=== PATIENT | female | born 1940 | race Hispanic/Latino ===

== ENCOUNTER → 2018-05-06 | Outpatient (CLI) | payer SELFPAY | END | disposition home or self-care (01) | LOC: OIH 13:49 | PROVIDERS: ATTEND Internal Medicine Cardiovascular Disease | DX: Z13.6 Encounter for screening for cardiovascular disorders (principal); K76.0 Fatty (change of) liver, not elsewhere classified | CPT/HCPCS: 75571 ==

== ENCOUNTER → 2018-05-22 | Outpatient (CLI) | payer MEDICARE | END | disposition home or self-care (01) | LOC: SHCH 13:44 | PROVIDERS: ATTEND Internal Medicine Cardiovascular Disease | DX: I73.9 Peripheral vascular disease, unspecified (principal) | CPT/HCPCS: 93925 ==

== ENCOUNTER 2018-07-08 07:46 | Inpatient (IN) | payer MEDICARE ==
[2018-07-04 10:30] VITALS: BP 128/52
[2018-07-04 11:02] LABS: BASOPHILS % (AUTO) 0.8 % (0.0-5.0); HEMATOCRIT 34.2 % (36-48); LYMPHOCYTES % (AUTO) 11.7 % (21.0-51.0); MEAN CORPUSCULAR HEMOGLOBIN 31.6 pg (27.0-33.0); MEAN CORPUSCULAR VOLUME 95.8 fL (79-99); MONOCYTES % (AUTO) 2.6 % (3.0-13.0); NEUTROPHILS % (AUTO) 83.9 % (40.0-77.0); NUCLEATED RED BLOOD CELLS 0.1 % (0.0-0.19); PLATELET COUNT (AUTO) 126 K/uL (130-400); RED BLOOD CELL COUNT(AUTO) 3.57 MIL/uL (4.00-5.50); RED CELL DISTRIBUTION WIDTH 13.1 % (11.0-15.5); WHITE BLOOD COUNT (AUTO) 13.1 K/uL (4.8-10.8)
[2018-07-04 11:12] LABS: CREATININE 0.8 mg/dL (0.5-1.5); POTASSIUM 4.6 mmol/L (3.5-5.1)
[2018-07-04 11:17] LABS: APPEARANCE,URINE Cloudy (CLEAR); BILIRUBIN,URINE Negative (NEGATIVE); COLOR,URINE Yellow (YELLOW); GLUCOSE, URINE (UA) >=1000 mg/dL (NEGATIVE); KETONES,URINE Trace mg/dL (NEGATIVE); LEUKOCYTE ESTERASE ,URINE Moderate (NEGATIVE); NITRATE,URINE Negative (NEGATIVE); OCCULT BLOOD,URINE Negative (NEGATIVE); PH,URINE 7.5 (5.0-8.0); PROTEIN,URINE Negative (NEGATIVE)
[2018-07-04 11:42] LABS: BACTERIA,URINE Many /HPF (None Seen)
[2018-07-04 11:44] LABS: RBC,URINE 0-1 /HPF (0-1)
[2018-07-04 12:00] LABS: INR 0.97 (0.85-1.15); PARTIAL THROMBOPLASTIN TIME 26.6 SEC (26.3-35.5); PROTHROMBIN TIME 10.2 SEC (9.6-11.6)
--- NOTE | 2018-07-07 13:12 | NUR ---
ABNORMAL LABS REPORTED ABNORMAL LABS TO OLLIE AYALA. WBC 13.1, PLATELETS 126, UA. ORDERS TO REDRAW CBC ON ARRIVAL .
[2018-07-08] VITALS (10 sets, daily range): BP systolic 129–145; BP diastolic 42–99
[~2018-07-08] VITALS: Ht 152.4 cm; Wt 59.9 kg
[~2018-07-08 07:46] MED LIST: ACETAMINOPHEN 325 MG TAB PO PRN; ASPI-555 PO; CARV3.12 PO; DIGO125T87 PO; FURO20TA4 PO; OMEP40CA37 PO; POTA-79 PO; SENN-31 PO; SIMV20TA6 PO; SITA1TAB6 PO; SODIUM CHLORIDE 0.9% 500ML 500 ML IV SCH; [UNRECOGNIZED DRUG - OTHER] PO
[2018-07-08 08:08] LABS: EOSINOPHILS % (AUTO) 1.1 % (0.0-8.0); HEMATOCRIT 34.7 % (36-48); MEAN CORPUSCULAR HEMOGLOBIN 31.8 pg (27.0-33.0); MEAN CORPUSCULAR HGB CONC 33.4 g/dL (32.0-36.0); MEAN CORPUSCULAR VOLUME 95.2 fL (79-99); MONOCYTES % (AUTO) 3.8 % (3.0-13.0); NEUTROPHILS % (AUTO) 80.1 % (40.0-77.0); NUCLEATED RED BLOOD CELLS 0.1 % (0.0-0.19); PLATELET COUNT (AUTO) 129 K/uL (130-400); RED BLOOD CELL COUNT(AUTO) 3.64 MIL/uL (4.00-5.50); WHITE BLOOD COUNT (AUTO) 9.7 K/uL (4.8-10.8)
[2018-07-08] MEDS ORDERED: SODIUM CHLORIDE 0.9% 1000ML 1,000 ML IV ONE ×2 (09:04→22:40)
[2018-07-08] MEDS ORDERED: INSULIN HUMULIN R 100 UNIT/ML 3ML ONE (09:06)
[2018-07-08] MEDS ORDERED: INSU100V12 SQ (09:52)
[2018-07-08] MEDS ORDERED: INSNOV IVP (09:52)
[2018-07-08] MEDS ORDERED: SODIUM BICARB 50MEQ 50ML VIAL ONE (10:51)
[2018-07-08] MEDS ORDERED: IOHEXOL-350 50ML VIAL IV ONE (10:51)
[2018-07-08] MEDS ORDERED: NITROGLYCERIN 5 MG/ML 10 ML VIAL IV ONE (10:51)
[2018-07-08] MEDS ORDERED: HEPARIN SODIUM 1000UNIT/ML 10ML VIAL ONE (10:51)
[2018-07-08] MEDS ORDERED: IOHEXOL 350 MG/ML 100ML INFUS..BTL IV ONE (10:51)
[2018-07-08] MEDS ORDERED: LIDOCAINE HCL 1% 20 ML VIAL ONE (10:51)
[2018-07-08] MEDS ORDERED: MIDAZOLAM HCL 1 MG/ML 2ML VIAL ONE ×2 (11:17→11:38)
[2018-07-08] MEDS ORDERED: MEPERIDINE-PF 25 MG/ML SYG ONE ×2 (11:17→11:38)
[2018-07-08] MEDS ORDERED: SODIUM CHLORIDE 0.9% 1000ML 1,000 ML IV SCH (11:57)
[2018-07-08] MEDS ORDERED: TRAMADOL HCL 50 MG TABLET PO PRN ×2 (17:45)
[2018-07-08] MEDS ORDERED: ACETAMINOPHEN 325 MG TAB PO PRN (17:45)
[2018-07-08] MEDS ORDERED: POTASSIUM CHLORIDE 10% ELIXIR 20 MEQ/15 ML UDCUP PO PRN (18:00)
[2018-07-08] MEDS ORDERED: POTASSIUM CHLORIDE 20MEQ/100ML 100 ML IV PRN ×2 (18:00)
[2018-07-08] MEDS ORDERED: GLUCAGON 1MG KIT 1 MG ML IM PRN (18:00)
[2018-07-08] MEDS ORDERED: LIDOCAINE HCL-MPF 1% 2ML VIAL IVP PRN ×2 (18:00)
[2018-07-08] MEDS ORDERED: DEXTROSE 50%-WATER 50 ML DISP.SYRIN IV PRN (18:00)
[2018-07-08] MEDS ORDERED: POTASSIUM CHLORIDE 20 MEQ ERTAB PO PRN (18:00)
--- NOTE | 2018-07-08 18:00 | NUR ---
POST PROCEDURE RECEIVED PT FROM DAY PATIENT, IN WHEELCHAIR, RT GROIN SOFT NONTENDER WITH NO OOZING OR HEMATOMA PRESENT. DP/PT PULSES PALPABLE, PT IS AMBULATORY FROM WHEELCHAIR TO BED, GAIT SLOW AND UNSTEADY WITH ASSIST. PT DENIES PAIN, SOB, NAUSEA. CALL LIGHT WITHIN REACH, FAMILY AT BEDSIDE.
--- NOTE | 2018-07-08 20:10 | NUR ---
PATIENT PREPPED FOR CABG BY JUDI MCCLAIN. 1ST LORI STARTED.
--- NOTE | 2018-07-08 21:30 | NUR ---
ASSESSMENT PATIENT IS AAOX3. PATIENT DENIES CHEST PAIN AND SHORTNESS OF BREATH. ON ROOM AIR. RESPIRATIONS UNLABORED. SINUS RHYTHM HR 70'S. S/P LT HEART CATH. RT GROIN SOFT WITHOUT BLEEDING OR HEMATOMA. PEDAL PULSES PALPABLE. REMINDED PATIENT NPO AFTER MIDNIGHT, CABG IN A.M. PATIENT VERBALIZED UNDERSTANDING. SEE DOCUMENTATION FOR FULL ASSESSMENT. CALL LIGHT WITHIN REACH. INSTRUCTED PATIENT TO CALL IF ASSISTANCE IS NEEDED.
[2018-07-08 21:36] LABS: HEMATOCRIT 31.8 % (36-48); MEAN CORPUSCULAR HGB CONC 34.2 g/dL (32.0-36.0); MEAN CORPUSCULAR VOLUME 93.8 fL (79-99); NUCLEATED RED BLOOD CELLS 0.1 % (0.0-0.19); PLATELET COUNT (AUTO) 125 K/uL (130-400); RED BLOOD CELL COUNT(AUTO) 3.39 MIL/uL (4.00-5.50); RED CELL DISTRIBUTION WIDTH 13.2 % (11.0-15.5); WHITE BLOOD COUNT (AUTO) 11.5 K/uL (4.8-10.8)
[2018-07-08 21:56] LABS: PARTIAL THROMBOPLASTIN TIME 26.3 SEC (26.3-35.5); PROTHROMBIN TIME 10.5 SEC (9.6-11.6)
[2018-07-08 21:58] LABS: ALBUMIN 3.2 g/dL (3.5-5.0); BILIRUBIN,TOTAL 0.9 mg/dL (0.2-1.0); CREATININE 0.6 mg/dL (0.5-1.5); POTASSIUM 3.9 mmol/L (3.5-5.1); TOTAL PROTEIN, SERUM 6.7 g/dL (6.0-8.3)
[2018-07-08] MEDS: PANTOPRAZOLE SODIUM 40 MG TABLET.DR PO SCH (22:46)
[2018-07-08] MEDS: SIMVASTATIN 20 MG TABLET PO SCH (22:47)
[2018-07-08] MEDS: CARVEDILOL 3.125 MG TABLET PO SCH (22:47)
[2018-07-08] MEDS: INSULIN HUMULIN R 100 UNIT/ML 3ML SQ SCH (23:04)
[2018-07-09] VITALS (11 sets, daily range): BP systolic 88–164; BP diastolic 42–82
--- NOTE | 2018-07-09 05:45 | NUR ---
OBTAINED CONSENT FOR CABG - SIGNED BY PATIENT.
--- NOTE | 2018-07-09 06:05 | NUR ---
2ND HIBICLENS SHOWER STARTED.
[2018-07-09] MEDS: INSULIN HUMULIN R 100 UNIT/ML 3ML SQ SCH ×2 (06:11→11:30)
[2018-07-09] MEDS: CARVEDILOL 3.125 MG TABLET PO SCH (08:47)
[2018-07-09] MEDS: POTASSIUM CHLORIDE 20 MEQ ERTAB PO SCH (08:48)
[2018-07-09] MEDS: SENNOSIDES PO SCH (08:48)
[2018-07-09] MEDS: DOCUSATE SODIUM PO SCH (08:48)
[2018-07-09] MEDS: PANTOPRAZOLE SODIUM 40 MG TABLET.DR PO SCH ×2 (08:49→21:00)
[2018-07-09] MEDS ORDERED: FUROSEMIDE 20 MG TABLET PO SCH (09:00)
[2018-07-09] MEDS ORDERED: DIGOXIN 125 MCG TABLET PO SCH (09:00)
[2018-07-09] MEDS ORDERED: BACITRACIN 50,000 UNIT VIAL ONE (12:11)
[2018-07-09] MEDS ORDERED: PAPAVERINE HCL 30 MG/ML 2ML VIAL ONE (12:11)
[2018-07-09] MEDS ORDERED: OCTYL 2-CYANOACRYLATE 1 EACH TP ONE (12:11)
[2018-07-09] MEDS ORDERED: EPINEPHRINE 1 MG/ML 30ML VIAL IJ ONE (12:21)
[2018-07-09] MEDS ORDERED: NITROGLYCERIN 50 MG/D5% WATER 1 BOT ONE (12:22)
[2018-07-09] MEDS ORDERED: PROTAMINE SULFATE 10 MG/ML 25ML VIAL IV ONE (14:19)
[2018-07-09] MEDS ORDERED: ESMOLOL HCL 10 MG/ML 10 ML VIAL ONE ×2 (14:19→14:21)
[2018-07-09] MEDS ORDERED: LIDOCAINE PF 2% 5ML ABBOJECT ONE (14:20)
[2018-07-09] MEDS ORDERED: FENTANYL CITRATE PF 50 MCG/1 ML 20ML VIAL IJ ONE (14:20)
[2018-07-09] MEDS ORDERED: ROCURONIUM 10MG/1ML SYR 10 MG/ML ML ONE ×2 (14:20→14:29)
[2018-07-09] MEDS ORDERED: EPINEPHRINE 1 MG/ML AMPULE ONE (14:20)
[2018-07-09] MEDS ORDERED: MIDAZOLAM HCL 1 MG/ML 5ML VIAL ONE (14:20)
[2018-07-09] MEDS ORDERED: AMINOCAPROIC ACID 250 MG/ML 20 ML VIAL IV ONE (14:20)
[2018-07-09] MEDS ORDERED: PROPOFOL 10 MG/ML 20ML VIAL IV ONE (14:20)
[2018-07-09] MEDS ORDERED: HEPARIN SODIUM 1000UNIT/ML 10ML VIAL ONE (14:20)
[2018-07-09] MEDS ORDERED: NOREPINEPHRINE BITARTRATE 1 MG/1 ML ML IV ONE (14:20)
[2018-07-09] MEDS ORDERED: VASOPRESSIN 20 UNITS/ML 1ML VIAL ONE (14:21)
[2018-07-09] MEDS ORDERED: AMIODARONE HCL 50 MG/ML 3 ML VIAL ONE (14:21)
[2018-07-09] MEDS ORDERED: GLYCOPYRROLATE 1 MG/5 ML SYRINGE ONE (14:22)
[2018-07-09] MEDS ORDERED: ETOMIDATE 2 MG/ML 10 ML VIAL ONE (14:27)
[2018-07-09] MEDS ORDERED: CEFAZOLIN SODIUM 1 GM VIAL ONE (14:35)
--- NOTE | 2018-07-09 16:09 | NUR ---
PRAVEENA PLAN PATIENT DOWN FOR PROCEDURE. CM WILL CONTINUE FOLLOW. Addendum: 07/09/18 at 1612 by KRISTA KILPATRICK RN CM Amended: Links added.
[2018-07-09 16:22] LABS: ABG BASE EXCESS -4.7 mmol/L (-2.0-3.0); ABG HCO3 22.5 mmol/L (21.0-28.0); ABG OXYGEN SATURATION 98.8 % (95.0-99.0); ABG PCO2 51 mmHg (32-45)
[2018-07-09] MEDS ORDERED: SODIUM CHLORIDE 0.9% 500ML 500 ML IV SCH (16:56)
[2018-07-09] MEDS ORDERED: NOREPINEPHRINE 4MG/NS 250ML 250 ML IV PRN (17:00)
[2018-07-09] MEDS ORDERED: AMINOCAPROIC ACID 15,000 MG in SODIUM CHLORIDE 0.9% 250 ML IV SCH (17:00)
[2018-07-09] MEDS ORDERED: ACETAMINOPHEN 325 MG TAB PO PRN (17:00)
[2018-07-09] MEDS ORDERED: CALCIUM GLUCONATE 1 GM in SODIUM CHLORIDE 0.9% 50 ML IV PRN (17:00)
[2018-07-09] MEDS ORDERED: DEXTROSE 50%-WATER 50 ML DISP.SYRIN IV PRN (17:00)
[2018-07-09] MEDS ORDERED: GLUCAGON 1MG KIT 1 MG ML IM PRN (17:00)
[2018-07-09] MEDS ORDERED: TRAMADOL HCL 50 MG TABLET PO PRN (17:00)
[2018-07-09] MEDS ORDERED: EPINEPHRINE 8 MG in DEXTROSE 5%-WATER 250 ML IV PRN (17:00)
[2018-07-09] MEDS ORDERED: ONDANSETRON HCL 4 MG/2 ML VIAL IV PRN (17:00)
[2018-07-09] MEDS ORDERED: MORPHINE SULFATE 2 MG/ML 1ML SYG IV PRN ×2 (17:00)
[2018-07-09] MEDS ORDERED: SODIUM CHLORIDE 0.9% 1000ML 1,000 ML IV SCH (17:00)
[2018-07-09] MEDS ORDERED: SODIUM CHLORIDE 0.9% 10 ML VIAL IVP PRN (17:00)
[2018-07-09] MEDS ORDERED: PROPOFOL 1000 MG/100 ML 100 ML IV PRN (17:00)
[2018-07-09] MEDS ORDERED: SODIUM CHLORIDE 0.9% 250 ML IV PRN (17:00)
[2018-07-09] MEDS ORDERED: NITROGLYCERIN 50 MG/D5% WATER 250 BOT IV SCH (17:00)
[2018-07-09] MEDS ORDERED: ALBUMIN (HUMAN) 5% 250 ML IV PRN (17:00)
[2018-07-09] MEDS ORDERED: ACETAMINOPHEN 650 MG SUPPOSITORY RC PRN (17:00)
[2018-07-09 17:03] LABS: ABG BASE EXCESS 0.4 mmol/L (-2.0-3.0); ABG HCO3 22.4 mmol/L (21.0-28.0); ABG OXYGEN SATURATION 98.6 % (95.0-99.0); ABG PCO2 27 mmHg (32-45)
[2018-07-09] MEDS ORDERED: POTASSIUM CHLORIDE 20MEQ/100ML 100 ML IV ONE ×2 (17:03→17:44)
[2018-07-09] MEDS ORDERED: SODIUM BICARB 8.4% 50ML SYRINGE ONE (17:15)
[2018-07-09] MEDS ORDERED: ALBUMIN (HUMAN) 5% 250 ML IV ONE ×2 (17:29→17:38)
[2018-07-09 17:45] LABS: ABG BASE EXCESS -0.6 mmol/L (-2.0-3.0); ABG HCO3 22.6 mmol/L (21.0-28.0); ABG OXYGEN SATURATION 98.6 % (95.0-99.0); ABG PCO2 32 mmHg (32-45)
--- NOTE | 2018-07-09 18:15 | NUR ---
I ASSUME CARE OF PATIENT FROM O.R. TEAM. BBS PRESENT -ET TUBE 7.5 AT 18 LIP SECURED. CONNECTED TO VENT AND CARDIAC MONITORS.
[2018-07-09 18:40] LABS: ABG BASE EXCESS -3.6 mmol/L (-2.0-3.0); ABG HCO3 19.9 mmol/L (21.0-28.0); ABG OXYGEN SATURATION 97.7 % (95.0-99.0); ABG PCO2 31 mmHg (32-45)
[2018-07-09] MEDS: SODIUM BICARB 50MEQ 50ML VIAL IV PRN (19:00)
[2018-07-09 19:06] LABS: HEMATOCRIT 27.6 % (36-48); MEAN CORPUSCULAR HEMOGLOBIN 32.7 pg (27.0-33.0); MEAN CORPUSCULAR HGB CONC 34.5 g/dL (32.0-36.0); MEAN CORPUSCULAR VOLUME 94.9 fL (79-99); PLATELET COUNT (AUTO) 144 K/uL (130-400); RED BLOOD CELL COUNT(AUTO) 2.91 MIL/uL (4.00-5.50); RED CELL DISTRIBUTION WIDTH 13.2 % (11.0-15.5); WHITE BLOOD COUNT (AUTO) 29.9 K/uL (4.8-10.8)
[2018-07-09] MEDS: INSULIN REGULAR, HUMAN 3ML 100 UNIT in SODIUM CHLORIDE 0.9% 99 ML IV SCH ×2 (19:08)
[2018-07-09] MEDS: POTASSIUM CHLORIDE 20MEQ/100ML 100 ML IV PRN ×2 (19:09→21:54)
[2018-07-09 19:16] LABS: CREATININE 0.6 mg/dL (0.5-1.5); MAGNESIUM 1.3 mg/dL (1.80-2.40); PHOSPHORUS 4.4 mg/dL (2.5-4.9); POTASSIUM 3.7 mmol/L (3.5-5.1)
--- NOTE | 2018-07-09 19:20 | NUR ---
HAND OFF GIVEN TO BEKAH RN- DR OMER ROUNDS AT BEDSIDE
--- NOTE | 2018-07-09 19:30 | NUR ---
DR OMER HERE TO SEE PT. UPDATED. NO NEW ORDERS.
[2018-07-09 19:57] LABS: INR 1.11 (0.85-1.15); PARTIAL THROMBOPLASTIN TIME 21.7 SEC (26.3-35.5); PROTHROMBIN TIME 11.6 SEC (9.6-11.6)
[2018-07-09] MEDS: MAGNESIUM 2GM PREMIX 50ML 50 ML IV PRN (20:39)
[2018-07-09] MEDS: SIMVASTATIN 20 MG TABLET PO SCH (21:00)
[2018-07-09 21:49] LABS: ABG BASE EXCESS -0.7 mmol/L (-2.0-3.0); ABG HCO3 22.9 mmol/L (21.0-28.0); ABG OXYGEN SATURATION 97.4 % (95.0-99.0); ABG PCO2 33 mmHg (32-45)
--- NOTE | 2018-07-09 22:00 | NUR ---
[id number] 3SEC - 7SEC PAUSES PATIENT APPEARED TO VAGAL SHE WAS COUGHING AND GAGGING WITH ET TUBE. SUCTIONED ORALLY. VERBAL & TACTILE STIMULATION, STOPPED COUGHING. REGAINED HEART RATE UP TO 108 SINUS RHYTHM AND IBP BACK UP TO 125/51. NOTIFIED DR OMER. STATED TO CONTINUE WITH VENT WEANING CVR PROTOCOL AND TO REPOSITION ET TUBE IF PATIENT CONTINUES GAGGING & COUGHING. PATIENT NOW CALM AND DROWSY. AROUSABLE, FOLLOWS SIMPLE COMMANDS, MOVES ALL 4 EXTREMITIES.
[2018-07-10] VITALS (29 sets, daily range): BP systolic 93–161; BP diastolic 35–86
[2018-07-10] MEDS: CEFAZOLIN SODIUM 1 GM VIAL IVP SCH ×2 (00:03→07:24)
[2018-07-10] MEDS: POTASSIUM CHLORIDE 20MEQ/100ML 100 ML IV PRN ×3 (00:56→04:51)
[2018-07-10] MEDS: METHYLPREDNISOLONE SOD SUCC 125MG/2ML VIAL IVP SCH ×2 (02:14→21:09)
[2018-07-10] MEDS ORDERED: ALBUMIN (HUMAN) 5% 250 ML IV ONE (02:16)
[2018-07-10 02:24] LABS: ABG BASE EXCESS 3.2 mmol/L (-2.0-3.0); ABG HCO3 26.5 mmol/L (21.0-28.0); ABG PCO2 34 mmHg (32-45)
[2018-07-10 04:32] LABS: HEMATOCRIT 22.4 % (36-48); MEAN CORPUSCULAR HEMOGLOBIN 32.1 pg (27.0-33.0); MEAN CORPUSCULAR HGB CONC 33.8 g/dL (32.0-36.0); NUCLEATED RED BLOOD CELLS 0.1 % (0.0-0.19); PLATELET COUNT (AUTO) 122 K/uL (130-400); RED BLOOD CELL COUNT(AUTO) 2.35 MIL/uL (4.00-5.50); RED CELL DISTRIBUTION WIDTH 13.2 % (11.0-15.5); WHITE BLOOD COUNT (AUTO) 22.2 K/uL (4.8-10.8)
[2018-07-10 04:43] LABS: CREATININE 0.7 mg/dL (0.5-1.5); MAGNESIUM 1.7 mg/dL (1.80-2.40); PHOSPHORUS 2.2 mg/dL (2.5-4.9); POTASSIUM 3.9 mmol/L (3.5-5.1)
[2018-07-10 04:51] LABS: INR 1.09 (0.85-1.15); PARTIAL THROMBOPLASTIN TIME 25.1 SEC (26.3-35.5); PROTHROMBIN TIME 11.4 SEC (9.6-11.6)
[2018-07-10] MEDS: MAGNESIUM 2GM PREMIX 50ML 50 ML IV PRN (04:52)
[2018-07-10] MEDS ORDERED: PHARMACY COMMUNICATION MISC SCH (05:30)
--- NOTE | 2018-07-10 05:38 | NUR ---
VENT WEANING CONTINUES VERY DROWSY. AROUSABLE, FOLLOWS SIMPLE COMMANDS AND MOVES ALL 4 EXTREMITIES, BUT FALLS ASLEEP DURING VENT WEANING PARAMETERS. WILL ATTEMPT AGAIN LATER.
[2018-07-10] MEDS: POTASSIUM PHOS 15 mMOL+NS250ML 250 ML IV PRN (07:25)
[2018-07-10] MEDS: SENNOSIDES PO SCH (07:26)
[2018-07-10] MEDS: DOCUSATE SODIUM PO SCH (07:26)
[2018-07-10] MEDS: ASPIRIN 325MG EC TAB 325 MG TABLET.DR PO SCH (07:26)
[2018-07-10] MEDS: POTASSIUM CHLORIDE 20 MEQ ERTAB PO SCH (07:26)
[2018-07-10] MEDS: PANTOPRAZOLE SODIUM 40 MG TABLET.DR PO SCH ×2 (07:27→21:02)
[2018-07-10 08:31] LABS: ABG BASE EXCESS -0.1 mmol/L (-2.0-3.0); ABG HCO3 23.9 mmol/L (21.0-28.0); ABG PCO2 37 mmHg (32-45)
--- NOTE | 2018-07-10 08:35 | NUR ---
PT SOMNOLENT-DROWSY. DOES NOT STAY AWAKE . NIF-11. PRESSURE SUPPORT LOWERED TO 5. WILL CONTINUE TO STIMULATE PATIENT TO STAY AWAKE. DAUGHTER CALLED ME AND INFORMED ME PATIENT SLEEPS A LOT AT HOME AND HAS HAD A CRANIOTOMY DONE IN FEB 2018. WILL CONTINUE VENT WEANING TOLERATED.
[2018-07-10 08:37] LABS: HEMATOCRIT 23.2 % (36-48)
[2018-07-10] MEDS ORDERED: PANTOPRAZOLE 40 MG/VIAL IV SCH (09:00)
--- NOTE | 2018-07-10 09:37 | NUR ---
PT MORE AWAKE WITH FAMILY AT BEDSIDE. WEANING PARAMETERS PERFORMED NIF -15.6 AND VC 590. ABG RESULTS REVIEWED . DR OMER NOTIFIED. PENDING ORDERS
--- NOTE | 2018-07-10 09:50 | NUR ---
EXTUBATED - DR OMER CALLED BACK AND GAVE ORDER Addendum: 07/10/18 at 1021 by LOLIS PETERS RN RN OGT REMOVED ALSO DURING EXTUBATION
[2018-07-10] MEDS: INSULIN REGULAR, HUMAN 3ML 100 UNIT in SODIUM CHLORIDE 0.9% 99 ML IV SCH ×2 (10:52)
[2018-07-10 11:47] LABS: ABG BASE EXCESS -2.3 mmol/L (-2.0-3.0); ABG HCO3 21.8 mmol/L (21.0-28.0); ABG OXYGEN SATURATION 98.2 % (95.0-99.0); ABG PCO2 36 mmHg (32-45)
[2018-07-10] MEDS: SODIUM BICARB 50MEQ 50ML VIAL IV PRN (11:48)
--- NOTE | 2018-07-10 12:08 | NUR ---
DR BOJORQUEZ AWARE OF CONSULT
--- NOTE | 2018-07-10 13:14 | NUR ---
HAND OFF REPORT GIVEN TO ERIK PERRY RN
--- NOTE | 2018-07-10 14:51 | NUR ---
PATIENT IS NOT READY FOR PT EVALUATION TODAY. IN AM, PATIENT WAS STILL INTUBATED. PM, PER ALYSSA GARCIA PATIENT WAS JUST EXTUBATED.WILL SEE PATIENT TOMORROW. Addendum: 07/10/18 at 1454 by JAILYN JOYCE, PT PT Amended: Links added.
--- NOTE | 2018-07-10 15:48 | NUR ---
PT TRANSFERRED TO ROOM 218. CARE ENDORSED TO ERIK GEORGE RN
[2018-07-10] MEDS: SIMVASTATIN 20 MG TABLET PO SCH (21:02)
[2018-07-11] VITALS (22 sets, daily range): BP systolic 106–150; BP diastolic 37–73
[2018-07-11 03:59] LABS: MEAN CORPUSCULAR HGB CONC 34.2 g/dL (32.0-36.0); MEAN CORPUSCULAR VOLUME 96.4 fL (79-99); PLATELET COUNT (AUTO) 89 K/uL (130-400); RED BLOOD CELL COUNT(AUTO) 2.09 MIL/uL (4.00-5.50); WHITE BLOOD COUNT (AUTO) 15.8 K/uL (4.8-10.8)
[2018-07-11 04:10] LABS: CREATININE 0.6 mg/dL (0.5-1.5); POTASSIUM 3.5 mmol/L (3.5-5.1)
[2018-07-11 04:18] LABS: HEMATOCRIT 20.2 % (36-48)
--- NOTE | 2018-07-11 07:47 | NUR ---
Jose ESTRADA PA-C, IN ROOM ASSESSING/SPEAKING WITH PT. DAUGHTER AT BEDSIDE.
[2018-07-11 08:15] LABS: HEMATOCRIT 20.2 % (36-48)
[2018-07-11] MEDS: POTASSIUM CHLORIDE 20 MEQ ERTAB PO SCH (08:47)
[2018-07-11] MEDS: PANTOPRAZOLE SODIUM 40 MG TABLET.DR PO SCH ×2 (08:47→21:17)
[2018-07-11] MEDS: ASPIRIN 325MG EC TAB 325 MG TABLET.DR PO SCH (08:47)
[2018-07-11] MEDS: DOCUSATE SODIUM PO SCH (08:48)
[2018-07-11] MEDS: SENNOSIDES PO SCH (08:48)
--- NOTE | 2018-07-11 10:05 | NUR ---
PRBC TRANSFUSION TO RIJ CORDIS WITH USE OF WARMER STARTED AFTER S/S OF ADVERSE REACTION EXPLAINED, VERBALIZED UNDERSTANDING. CALL LIGHT WITHIN REACH. GRANDDAUGHTER AT BEDSIDE.
--- NOTE | 2018-07-11 10:10 | NUR ---
PRBC TRANSFUSION IN PROGRESS. THIS NURSE PRESENT. PT. DENIES ANY C/O. GRANDDAUGHTER AT BEDSIDE.
--- NOTE | 2018-07-11 11:42 | NUR ---
Maye ROUSSEAU CLINICAL APPEALS RN IN ROOM ASSESSING PT. AND EXPLAINING PLAN OF CARE TO PT. AND PT.'S GRANDDAUGHTER AT BEDSIDE.
[2018-07-11] MEDS: POTASSIUM CHLORIDE 20MEQ/100ML 100 ML IV PRN (11:57)
[2018-07-11] MEDS ORDERED: HEPARIN SODIUM 1000UNIT/ML 10ML VIAL IV ONE (12:00)
[2018-07-11] MEDS: INSULIN HUMULIN R 100 UNIT/ML 3ML SQ SCH ×3 (12:22→21:00)
--- NOTE | 2018-07-11 12:45 | NUR ---
DR. Sergei BOJORQUEZ IN ROOM SPEAKING WITH PT. DR. BOJORQUEZ UPDATED BY THIS NURSE RE:TODAYS LABS, BLOOD TRANSFUSION ORDERED AND CHEST TUBE OUTPUT, VERBALIZED UNDERSTANDING.
--- NOTE | 2018-07-11 13:09 | NUR ---
DC PLAN VISITED WITH PATIENT. PATIENT LIVES WITH DAUGHTER. SEMI INDEPENDENT ABLE TO PERFORM MOST ADLS. PATIENT HAS PROVIDER 32 HOURS. WALKER AND WHEEL CHAIR AT HOME. FEELS SAFE TO RETURN HOME. Addendum: 07/11/18 at 1313 by KRISTA KILPATRICK RN CM Amended: Links added.
--- NOTE | 2018-07-11 13:30 | NUR ---
PRBC TRANSFUSION COMPLETED. PT. TOLERATED W/O C/O. CALL LIGHT WITHIN REACH. DAUGHTER AT BEDSIDE.
[2018-07-11] MEDS ORDERED: FUROSEMIDE 10 MG/ML 2ML VIAL IV SCH (14:45)
--- NOTE | 2018-07-11 15:30 | NUR ---
RAC 20G IV STARTED ON 1ST ATTEMPT. RIJ CORDIS REMOVED WITH MANUAL PRESSURE APPLIED FOR 15 MIN., NO BLEEDING NOTED. LIGHT DRSG APPLIED, SECURED WITH PAPER TAPE. LEFT RADIAL ARTERIAL LINE REMOVED, CATHETER INTACT. PRESSURE APPLIED X10MIN, NO BLEEDING OR HEMATOMA NOTED; LIGHT DRSG APPLIED, SECURED WITH TAPE. CALL LIGHT WITHIN REACH, VERBALIZED ABILITY TO USE. DAUGHTER AT BEDSIDE.
[2018-07-11] MEDS: FUROSEMIDE 20 MG TABLET PO SCH (16:32)
--- NOTE | 2018-07-11 18:00 | NUR ---
JOHN CATHETER REMOVED---TOLERATED WELL. DUE TO VOID IN 6-8 HOURS. REPORTED OFF TO PRIMARY CARE NURSEJOSE ANGEL. INSTRUCTED PT TO CALL FOR ASSISTANCE WHEN NEEDING TO GET OUT OF BED OR GO TO BATHROOM, VERBALIZED UNDERSTANDING.
[2018-07-11] MEDS: METHYLPREDNISOLONE SOD SUCC 125MG/2ML VIAL IVP SCH (18:56)
[2018-07-11] MEDS: SIMVASTATIN 20 MG TABLET PO SCH (21:17)
[2018-07-11] MEDS: METOPROLOL TARTRATE 25 MG TAB PO SCH (21:17)
[2018-07-12] VITALS (8 sets, daily range): BP systolic 89–145; BP diastolic 46–70
[2018-07-12 03:50] LABS: HEMATOCRIT 24.1 % (36-48); MEAN CORPUSCULAR HEMOGLOBIN 32.6 pg (27.0-33.0); MEAN CORPUSCULAR HGB CONC 34.3 g/dL (32.0-36.0); PLATELET COUNT (AUTO) 83 K/uL (130-400); RED BLOOD CELL COUNT(AUTO) 2.54 MIL/uL (4.00-5.50); RED CELL DISTRIBUTION WIDTH 13.8 % (11.0-15.5); WHITE BLOOD COUNT (AUTO) 14.4 K/uL (4.8-10.8)
[2018-07-12 04:04] LABS: CREATININE 0.7 mg/dL (0.5-1.5); POTASSIUM 3.9 mmol/L (3.5-5.1)
[2018-07-12] MEDS: INSULIN HUMULIN R 100 UNIT/ML 3ML SQ SCH ×4 (06:05→21:39)
--- NOTE | 2018-07-12 06:48 | NUR ---
CT LEVEL at 760. PM output of 90 cc sanguinous drainage.
--- NOTE | 2018-07-12 07:30 | NUR ---
ASSESSMENT ENCOUNTERED PT A&OX3, CALM COOPERATIVE AND DOES NOT APPEAR TO BE IN ANY DISTRESS NOR ANY NEURO DEFICITS PRESENT. CHEST TUBES WITH SEROSANGUINEOUS DRAINAGE PRESENT, DRESSINGS DRY AND INTACT. INCENTIVE SPIROMETRY AVERAGE 250-500ML PER ATTEMPT. PT IS ABLE TO AMBULATE TO CHAIR WITH 1-2 PERSON ASSIST BY SHUFFLE, GAIT SLOW AND UNSTEADY. PT RESTING COMFORTABLY, CALL LIGHT WITHIN REACH, FAMILY AT BEDSIDE.
[2018-07-12] MEDS: SENNOSIDES PO SCH (09:00)
[2018-07-12] MEDS: DOCUSATE SODIUM PO SCH (09:00)
[2018-07-12] MEDS: FUROSEMIDE 20 MG TABLET PO SCH (09:34)
[2018-07-12] MEDS: ASPIRIN 325MG EC TAB 325 MG TABLET.DR PO SCH (09:34)
[2018-07-12] MEDS: POTASSIUM CHLORIDE 20 MEQ ERTAB PO SCH (09:34)
[2018-07-12] MEDS: PANTOPRAZOLE SODIUM 40 MG TABLET.DR PO SCH ×2 (09:34→21:30)
[2018-07-12] MEDS: METOPROLOL TARTRATE 25 MG TAB PO SCH ×2 (09:34→21:30)
[2018-07-12] MEDS: FUROSEMIDE 10 MG/ML 4ML VIAL IV SCH (18:08)
[2018-07-12] MEDS: SIMVASTATIN 20 MG TABLET PO SCH (21:30)
[2018-07-13] VITALS (7 sets, daily range): BP systolic 93–126; BP diastolic 47–58
[2018-07-13] MEDS: METHYLPREDNISOLONE SOD SUCC 125MG/2ML VIAL IVP SCH ×2 (02:26→20:42)
[2018-07-13 04:34] LABS: HEMATOCRIT 25.8 % (36-48); MEAN CORPUSCULAR HEMOGLOBIN 32.8 pg (27.0-33.0); MEAN CORPUSCULAR HGB CONC 34.7 g/dL (32.0-36.0); MEAN CORPUSCULAR VOLUME 94.5 fL (79-99); NUCLEATED RED BLOOD CELLS 0.1 % (0.0-0.19); PLATELET COUNT (AUTO) 105 K/uL (130-400); RED BLOOD CELL COUNT(AUTO) 2.73 MIL/uL (4.00-5.50); RED CELL DISTRIBUTION WIDTH 14.1 % (11.0-15.5); WHITE BLOOD COUNT (AUTO) 13.7 K/uL (4.8-10.8)
[2018-07-13 04:41] LABS: CREATININE 0.6 mg/dL (0.5-1.5); POTASSIUM 3.2 mmol/L (3.5-5.1)
[2018-07-13] MEDS: FUROSEMIDE 10 MG/ML 4ML VIAL IV SCH (06:15)
[2018-07-13] MEDS: POTASSIUM CHLORIDE 20 MEQ ERTAB PO SCH (06:15)
[2018-07-13] MEDS: INSULIN HUMULIN R 100 UNIT/ML 3ML SQ SCH ×4 (06:16→21:00)
--- NOTE | 2018-07-13 07:40 | NUR ---
ASSESSMENT ENCOUNTERED PT UP IN CHAIR, A&OX3, CALM COOPERATIVE AND DOES NOT APPEAR TO BE IN ANY DISTRESS NOR ANY NEURO DEFICITS PRESENT, PT DENIES PAIN, SOB, NAUSEA. CHEST TUBE WITH SEROSANGUINEOUS DRAINAGE PRESENT. PT IS AMBULATORY, GAIT SLOW AND UNSTEADY WITH 1-2 PERSON ASSIST. INCENTIVE SPIROMETRY UP TO 500ML AVERAGE PER ATTEMPT. CALL LIGHT WITHIN REACH, FAMILY AT BEDSIDE.
[2018-07-13] MEDS: DOCUSATE SODIUM PO SCH (09:00)
[2018-07-13] MEDS: SENNOSIDES PO SCH (09:00)
[2018-07-13] MEDS: ASPIRIN 325MG EC TAB 325 MG TABLET.DR PO SCH (10:59)
[2018-07-13] MEDS: METOPROLOL TARTRATE 25 MG TAB PO SCH ×2 (10:59→19:34)
[2018-07-13] MEDS: PANTOPRAZOLE SODIUM 40 MG TABLET.DR PO SCH ×2 (10:59→20:43)
[2018-07-13] MEDS: TRAMADOL HCL 50 MG TABLET PO PRN (11:02)
--- NOTE | 2018-07-13 13:00 | NUR ---
CHEST TUBES REMOVED TOLERATED WELL, CALL LIGHT WITHIN REACH, FAMILY AT BEDSIDE.
[2018-07-13] MEDS: FUROSEMIDE 20 MG TABLET PO SCH (16:58)
[2018-07-13] MEDS: SIMVASTATIN 20 MG TABLET PO SCH (20:43)
[2018-07-14 04:37] VITALS: BP 110/60
[2018-07-14] MEDS: INSULIN HUMULIN R 100 UNIT/ML 3ML SQ SCH ×3 (06:40→16:58)
--- NOTE | 2018-07-14 06:45 | NUR ---
JAMIE LEVIN ROUNDING ON PT
[2018-07-14 07:41] VITALS: BP 124/66
[2018-07-14] MEDS: SENNOSIDES PO SCH (08:35)
[2018-07-14] MEDS: DOCUSATE SODIUM PO SCH (08:35)
[2018-07-14] MEDS: ASPIRIN 325MG EC TAB 325 MG TABLET.DR PO SCH (08:40)
[2018-07-14] MEDS: METOPROLOL TARTRATE 25 MG TAB PO SCH (08:41)
[2018-07-14] MEDS: PANTOPRAZOLE SODIUM 40 MG TABLET.DR PO SCH (08:41)
[2018-07-14] MEDS: POTASSIUM CHLORIDE 20 MEQ ERTAB PO SCH (08:41)
[2018-07-14] MEDS: FUROSEMIDE 20 MG TABLET PO SCH ×2 (08:42→16:14)
[2018-07-14 11:22] LABS: ALBUMIN 2.6 g/dL (3.5-5.0); BILIRUBIN,TOTAL 1.5 mg/dL (0.2-1.0); CREATININE 0.8 mg/dL (0.5-1.5); MAGNESIUM 1.5 mg/dL (1.80-2.40); PHOSPHORUS 2.1 mg/dL (2.5-4.9); POTASSIUM 3.4 mmol/L (3.5-5.1); TOTAL PROTEIN, SERUM 6.1 g/dL (6.0-8.3)
[2018-07-14 11:25] VITALS: BP 100/53
[2018-07-14] MEDS: MAGNESIUM 2GM PREMIX 50ML 50 ML IV PRN (11:43)
[2018-07-14] MEDS ORDERED: POTA20TA12 PO (12:05)
[2018-07-14] MEDS ORDERED: TRAM50TA4 PO (12:05)
[2018-07-14] MEDS ORDERED: FURO20TA6 PO (12:05)
[2018-07-14] MEDS ORDERED: METO25 PO (12:05)
[2018-07-14] MEDS ORDERED: ASPI-891 PO (12:05)
[2018-07-14] MEDS ORDERED: MAGNESIUM 2GM PREMIX 50ML 50 ML IV SCH (15:15)
[2018-07-14] MEDS: TRAMADOL HCL 50 MG TABLET PO PRN (16:14)
[2018-07-14 16:52] VITALS: BP 112/67
[2018-07-14] MEDS: POTASSIUM PHOS 15 mMOL+NS250ML 250 ML IV PRN (18:35)
== END 2018-07-14 19:12 | disposition home or self-care (01) | DRG 233 ==
LOC: DAH 07:46 → DAHIP 07:47 → DAH 07:47 → 2DH 20:35 → 2CV 07-09 15:15 → 2CH 07-10 16:22 → 2AH 07-11 16:44
PROVIDERS: ADMIT Thoracic Surgery (Cardiothoracic Vascular Surgery); ATTEND Thoracic Surgery (Cardiothoracic Vascular Surgery)
PROC: 4A023N7 Measurement of Cardiac Sampling and Pressure, Left Heart, Percutaneous Approach (ICD-10-PCS; principal; 2018-07-08)
PROC: B2111ZZ Fluoroscopy of Multiple Coronary Arteries using Low Osmolar Contrast (ICD-10-PCS; 2018-07-08)
PROC: B2151ZZ Fluoroscopy of Left Heart using Low Osmolar Contrast (ICD-10-PCS; 2018-07-08)
PROC: 02100Z9 Bypass Coronary Artery, One Artery from Left Internal Mammary, Open Approach (ICD-10-PCS; 2018-07-09)
PROC: 021109W Bypass Coronary Artery, Two Arteries from Aorta with Autologous Venous Tissue, Open Approach (ICD-10-PCS; 2018-07-09)
PROC: 06BQ4ZZ Excision of Left Saphenous Vein, Percutaneous Endoscopic Approach (ICD-10-PCS; 2018-07-09)
PROC: 30233N1 Transfusion of Nonautologous Red Blood Cells into Peripheral Vein, Percutaneous Approach (ICD-10-PCS; 2018-07-10)
PROC: 0W9B30Z Drainage of Left Pleural Cavity with Drainage Device, Percutaneous Approach (ICD-10-PCS; 2018-07-14)
DX: I25.110 Atherosclerotic heart disease of native coronary artery with unstable angina pectoris (principal); R65.11 Systemic inflammatory response syndrome (SIRS) of non-infectious origin with acute organ dysfunction; E87.0 Hyperosmolality and hypernatremia; I42.9 Cardiomyopathy, unspecified; I10 Essential (primary) hypertension; E11.9 Type 2 diabetes mellitus without complications; E78.5 Hyperlipidemia, unspecified; I25.5 Ischemic cardiomyopathy; I25.82 Chronic total occlusion of coronary artery; Z79.82 Long term (current) use of aspirin; Z86.73 Personal history of transient ischemic attack (TIA), and cerebral infarction without residual deficits
CPT/HCPCS: 36415; 36430; 71045; 80048; 80053; 80061; 80162; 81001; 82435; 82803; 82947; 82948; 83036; 83605; 83735; 84100; 84132; 84295; 85014; 85018; 85025; 85027; 85347; 85610; 85730; 86850; 86900; 86901; 86922; 93005; 93306; 93458; 93880; 94002; 94003; 94010; 94150; 97039; 99156; 99157; A4218; A4606; A7048; C1760; C1894; C9113; G0378; J0171; J0282; J0690; J1644; J1815; J1940; J2001; J2175; J2250; J2440; J2704; J2720; J2930; J3010; J3475; J3480; J3490; J7030; J7040; P9016; P9045; Q9967

== ENCOUNTER 2018-07-20 22:35 | Observation (INO) | payer MEDICARE ==
[~2018-07-20] VITALS: Ht 154.9 cm; Wt 59.3 kg
[~2018-07-20 22:35] MED LIST changes: -ACETAMINOPHEN 325 MG TAB PO PRN; -ASPI-555 PO; +ASPI-891 PO; -CARV3.12 PO; -DIGO125T87 PO; -FURO20TA4 PO; +FURO20TA6 PO; +INSNOV IVP; +INSU100V12 SQ; +METO25 PO; -POTA-79 PO; +POTA20TA12 PO; -SODIUM CHLORIDE 0.9% 500ML 500 ML IV SCH; +TRAM50TA4 PO; -[UNRECOGNIZED DRUG - OTHER] PO
[2018-07-21 00:11] LABS: BASOPHILS % (AUTO) 0.8 % (0.0-5.0); EOSINOPHILS % (AUTO) 0.8 % (0.0-8.0); HEMATOCRIT 31.6 % (36-48); LYMPHOCYTES % (AUTO) 9.2 % (21.0-51.0); MEAN CORPUSCULAR HEMOGLOBIN 31.6 pg (27.0-33.0); MEAN CORPUSCULAR VOLUME 95.6 fL (79-99); MONOCYTES % (AUTO) 3.1 % (3.0-13.0); NEUTROPHILS % (AUTO) 86.1 % (40.0-77.0); NUCLEATED RED BLOOD CELLS 0.1 % (0.0-0.19); PLATELET COUNT (AUTO) 180 K/uL (130-400); RED CELL DISTRIBUTION WIDTH 14.8 % (11.0-15.5); WHITE BLOOD COUNT (AUTO) 16.6 K/uL (4.8-10.8)
[2018-07-21 00:22] LABS: APPEARANCE,URINE Cloudy (CLEAR); BILIRUBIN,URINE Negative (NEGATIVE); COLOR,URINE Yellow (YELLOW); GLUCOSE, URINE (UA) Negative (NEGATIVE); KETONES,URINE Negative (NEGATIVE); LEUKOCYTE ESTERASE ,URINE Large (NEGATIVE); NITRATE,URINE Negative (NEGATIVE); OCCULT BLOOD,URINE Negative (NEGATIVE); PROTEIN,URINE Negative (NEGATIVE)
[2018-07-21 00:23] LABS: CREATININE 0.8 mg/dL (0.5-1.5); POTASSIUM 4.3 mmol/L (3.5-5.1)
[2018-07-21 00:27] LABS: ALBUMIN 3.3 g/dL (3.5-5.0); BILIRUBIN,TOTAL 0.8 mg/dL (0.2-1.0); TOTAL PROTEIN, SERUM 7.7 g/dL (6.0-8.3)
[2018-07-21 00:38] LABS: B-TYPE NATRIURETIC PEPTIDE 235 pg/mL (0-100)
[2018-07-21 00:40] LABS: INR 1.01 (0.85-1.15); PARTIAL THROMBOPLASTIN TIME 33.3 SEC (26.3-35.5); PROTHROMBIN TIME 10.6 SEC (9.6-11.6)
[2018-07-21 00:50] LABS: BACTERIA,URINE Many /HPF (None Seen); WBC,URINE TNTC /HPF (0-1)
[2018-07-21 00:51] LABS: SQUAMOUS EPITHELIAL CELL,UR Few /HPF (0-2)
[2018-07-21] MEDS ORDERED: CEFTRIAXONE SODIUM 1 GM ONE (01:05)
[2018-07-21] MEDS ORDERED: TRAMADOL HCL 50 MG TABLET PO PRN (02:00)
[2018-07-21] MEDS ORDERED: ACETAMINOPHEN 325 MG TAB PO PRN (02:15)
[2018-07-21] MEDS ORDERED: ONDANSETRON HCL 4 MG/2 ML VIAL IV PRN (02:15)
[2018-07-21] MEDS ORDERED: FUROSEMIDE 20 MG TABLET ONE (07:37)
[2018-07-21] MEDS ORDERED: ASPIRIN 325 MG TABLET ONE (07:37)
[2018-07-21] MEDS ORDERED: MECLIZINE HCL 25 MG TABLET ONE (07:37)
[2018-07-21] MEDS ORDERED: POTASSIUM CHLORIDE 20 MEQ ERTAB PO ONE (07:37)
[2018-07-21] MEDS ORDERED: METOPROLOL TARTRATE 25 MG TAB ONE (07:38)
[2018-07-21] MEDS ORDERED: PANTOPRAZOLE SODIUM 40 MG TABLET.DR PO ONE (07:38)
[2018-07-21] MEDS ORDERED: DOCUSATE SODIUM 100 MG CAP PO ONE (07:38)
[2018-07-21] MEDS: FAMOTIDINE/PF 20 MG/2 ML VIAL IV SCH ×2 (09:00→21:09)
[2018-07-21] MEDS: SENNOSIDES PO SCH (09:00)
[2018-07-21] MEDS: POTASSIUM CHLORIDE 20 MEQ ERTAB PO SCH (09:00)
[2018-07-21] MEDS ORDERED: ASPIRIN 325MG EC TAB 325 MG TABLET.DR PO SCH (09:00)
[2018-07-21] MEDS: FUROSEMIDE 20 MG TABLET PO SCH ×2 (09:00→18:47)
[2018-07-21] MEDS: DOCUSATE SODIUM PO SCH (09:00)
[2018-07-21] MEDS: PANTOPRAZOLE SODIUM 40 MG TABLET.DR PO SCH ×2 (09:00→21:09)
[2018-07-21] MEDS ORDERED: CEFTRIAXONE SODIUM 500 MG VIAL IV SCH (09:00)
[2018-07-21] MEDS: MECLIZINE HCL 25 MG TABLET PO SCH ×3 (09:00→21:09)
[2018-07-21] MEDS: METOPROLOL TARTRATE 25 MG TAB PO SCH ×2 (09:00→21:10)
[2018-07-21 15:00] VITALS: BP 126/61
--- NOTE | 2018-07-21 19:27 | NUR ---
Dr. Gutierres at bedside.
--- NOTE | 2018-07-21 19:35 | NUR ---
MD DR CORONADO JUST WAS IN TO SEE PT AND ORDERED A CT SCAN TO BE DONE TONIGHT. ORDERED CHANGED TO CT STAT.
[2018-07-21 19:38] VITALS: BP 113/51
[2018-07-21] MEDS ORDERED: DEXTROSE 50%-WATER 50 ML DISP.SYRIN IV PRN (19:45)
[2018-07-21] MEDS ORDERED: GLUCAGON 1MG KIT 1 MG ML IM PRN (19:45)
--- NOTE | 2018-07-21 20:10 | NUR ---
CT CT SCAN CALLED AND ASKED FOR SOMEBODY TO BRING PT TO CT SCAN. PCP BROUGHT PT DONE FOR SCAN.
--- NOTE | 2018-07-21 20:55 | NUR ---
MD DR CORONADO CALLED AND INFORMED OF CT SCAN RESULTS. NEW ORDERS GIVEN WITH ORDERS TO TRANSFER PT TO PCCU. RESOURCE NURSE MADE AWARE AND STATED WILL CALL BACK FOR A ROOM NUMBER. PT AND FAMILY MADE AWARE OF TRANSFER ORDERS. DUE MEDS ADMINISTERED, TOLERATED WELL. KEPT COMFORTABLE IN BED.
[2018-07-21] MEDS ORDERED: SIMVASTATIN 20 MG TABLET PO SCH (21:00)
[2018-07-21] MEDS: INSULIN HUMULIN R 100 UNIT/ML 3ML SQ SCH (21:17)
--- NOTE | 2018-07-21 21:45 | NUR ---
TRANSFER RESOURCE NURSE CALLS FOR ROOM NUMBER. REPORT CALLED TO ALYSSA MORALES. PT AND FAMILY HELPED BY PCP TO GATHER THINGS AND TRANSFER PTT O PCCU.
--- NOTE | 2018-07-21 22:13 | NUR ---
Received pt. via bed accompanied by family ,S/P fall ,occipital area has red discoloration.Pt. is awake ,alert and oiented,denies dizziness and headache or any discomfort at this time,moving all extremeties.
[2018-07-21 23:46] VITALS: BP 113/65
[2018-07-22 03:50] LABS: HEMATOCRIT 28.7 % (36-48); MEAN CORPUSCULAR HEMOGLOBIN 32.3 pg (27.0-33.0); MEAN CORPUSCULAR HGB CONC 33.8 g/dL (32.0-36.0); MEAN CORPUSCULAR VOLUME 95.7 fL (79-99); NUCLEATED RED BLOOD CELLS 0.2 % (0.0-0.19); PLATELET COUNT (AUTO) 152 K/uL (130-400); RED CELL DISTRIBUTION WIDTH 14.2 % (11.0-15.5); WHITE BLOOD COUNT (AUTO) 10.9 K/uL (4.8-10.8)
[2018-07-22 03:58] LABS: % IRON SATURATION 16.7 % (22-44); HEMOGLOBIN A1C 8.7 % (4.0-6.0)
[2018-07-22 04:04] LABS: CREATININE 0.8 mg/dL (0.5-1.5); MAGNESIUM 1.6 mg/dL (1.80-2.40); PHOSPHORUS 3.1 mg/dL (2.5-4.9); POTASSIUM 3.8 mmol/L (3.5-5.1)
[2018-07-22 04:21] VITALS: BP 121/60
[2018-07-22] MEDS: INSULIN HUMULIN R 100 UNIT/ML 3ML SQ SCH ×2 (06:08→12:25)
[2018-07-22 07:00] VITALS: BP 110/56
--- NOTE | 2018-07-22 07:39 | NUR ---
Bedside report given to incoming NOD using SBAR ,all questions answered.Pt. kept NPO for CT head today,pending to consult neurosurgeon Dr. Devon Lee.
--- NOTE | 2018-07-22 08:00 | NUR ---
ASSESSMENT ENCOUNTERED PT IN GASTELUM'S POSITION, A&OX3, CALM COOPERATIVE AND DOES NOT APPEAR TO BE IN ANY DISTRESS NOR ANY NEURO DEFICITS PRESENT. PT DENIES PAIN, SOB, NAUSEA BUT DOES C/O INTERMITTENT DIZZINESS. PT IS ABLE TO TOLERATE FOODS, FLUIDS AND MEDICATION WITH NO THROAT CLEARING OR COUGH. CUSTOMS INVESTIGATOR STRENGTH EQUAL TO UPPER EXTREMITIES. STERNAL INCISION DRY AND INTACT WITH NO OOZING OR DISCHARGE PRESENT. CALL LIGHT WITHIN REACH, FAMILY AT BEDSIDE.
[2018-07-22] MEDS: FAMOTIDINE/PF 20 MG/2 ML VIAL IV SCH (09:00)
[2018-07-22] MEDS: SENNOSIDES PO SCH (09:00)
[2018-07-22] MEDS: DOCUSATE SODIUM PO SCH (09:00)
--- NOTE | 2018-07-22 09:10 | NUR ---
DR PAPPAS AT BEDSIDE UPDATE GIVEN, ORDERS RECEIVED FOR NO INTERVENTION FROM NEURO STANDPOINT AT THIS TIME.
[2018-07-22 11:00] VITALS: BP 105/60
--- NOTE | 2018-07-22 11:00 | NUR ---
DR NG AT BEDSIDE UPDATE GIVEN, ORDERS RECEIVED
[2018-07-22] MEDS: FUROSEMIDE 20 MG TABLET PO SCH (12:19)
[2018-07-22] MEDS: PANTOPRAZOLE SODIUM 40 MG TABLET.DR PO SCH (12:20)
[2018-07-22] MEDS: POTASSIUM CHLORIDE 20 MEQ ERTAB PO SCH (12:20)
[2018-07-22] MEDS: MECLIZINE HCL 25 MG TABLET PO SCH (12:20)
[2018-07-22] MEDS: METOPROLOL TARTRATE 25 MG TAB PO SCH (12:21)
[2018-07-22] MEDS ORDERED: CEFTRIAXONE SODIUM 1 GM IV SCH (12:34)
--- NOTE | 2018-07-22 12:42 | NUR ---
COGNITIVE EVAL COMPLETE. COGNITIVE-LINGUISTIC ABILITIES WITHIN FUNCTIONAL LIMITS. PATIENT INFORMATION: Pt IS A 77 YEAR OLD FEMALE REFERRED FOR A COGNITIVE-LINGUISTIC EVALUATION SECONDARY TO S/P FALL WITH BRAIN BLEED. Pt COOPERATIVE DURING THE EVALUATION AND SERVED THE PRIMARY INFORMANT FOR MEDICAL AND SOCIAL HISTORY. Pt CURRENTLY ADMITTED SECONDARY TO S/P FALL. Pt HAS A PAST MEDICAL HISTORY SIGNIFICANT FOR INSULIN DEPENDENT DM, HYPERTENSION, HYPERLIPIDEMIA, CAD S/P CABG, CRANIOTOMY (6 MONTHS AGO). EVALUATION: Pt AAOX3. Pt REQUESTS WANTS AND NEEDS INDEPENDENTLY. Pt INTELLIGIBLE AT 100% ACCURACY TO THE UNFAMILIAR LISTENER. Pt COMMUNICATING AT CONVERSATIONAL LEVEL WITH NO DEFICITS IDENTIFIED AT THIS TIME. Pt COMPLETED COGNITIVE-LINGUISTIC EVALUATION TARGETING: ORIENTATION, ATTENTION/CONCENTRATION, MEMORY (IMMEDIATE, SHORT-TERM AND LONG-TERM), PROBLEM SOLVING, LOGIC/REASONING/INFERENCE, THOUGHT ORGANIZATION, FUNCTIONAL MATH AND TELLING TIME. Pt ABLE TO COMPLETE TASKS WITH CORRECT AND TIMELY ANSWERS TO ALL SECTIONS. G-CODES SPOKEN LANGUAGE EXPRESSION: [id number] Addendum: 07/22/18 at 1244 by RADHA WEBBER Amended: Links added.
--- NOTE | 2018-07-22 12:45 | NUR ---
DYSPHAGIA EVAL COMPLETED. -S/S OF ASPIRATION. RECOMMEND PUREED, THIN LIQUIDS; PILLS WHOLE WITH LIQUIDS. PATIENT INFORMATION: Pt IS A 77 YEAR OLD FEMALE REFERRED FOR A BEDSIDE DYSPHAGIA EVAL SECONDARY TO S/P FALL WITH BRAIN BLEED. Pt COOPERATIVE DURING THE EVALUATION AND SERVED THE PRIMARY INFORMANT FOR MEDICAL AND SOCIAL HISTORY. Pt CURRENTLY ADMITTED SECONDARY TO S/P FALL. Pt HAS A PAST MEDICAL HISTORY SIGNIFICANT FOR INSULIN DEPENDENT DM, HYPERTENSION, HYPERLIPIDEMIA, CAD S/P CABG, CRANIOTOMY (6 MONTHS AGO). EVALUATION: Pt WITH LOOSE DENTURES. ORAL MOTOR COORDINATION, ROM AND STRENGTH WITHIN FUNCTIONAL LIMITS. PHARYNGEAL TRIGGER RESPONSE AND LARYNGEAL ELEVATION/EXCURSION TIMELY AND STRONG WITH NO OVERT S/S OF ASPIRATION. PER DAUGHTER, Pt DOES BETTER WITH PUREED SECONDARY TO POOR DENTITION. NO OVERT S/S OF ASPIRATION. RECOMMENDATIONS: 1. PUREED, THIN LIQUIDS; PILLS WHOLE. 2. COMPENSATORY STRATEGIES (PROPHYLAXIS): *SEATED AT 90 DEGREES G-CODES SWALLOWING: [id number] Addendum: 07/22/18 at [address] Amended: Links added.
--- NOTE | 2018-07-22 13:00 | NUR ---
AMBULATION TO CHAIR, GAIT SLOW BUT STEADY WITH 1-2 PERSON ASSIST PER BASELINE, PT DENIES DIZZINESS OR LIGHTHEADEDNESS. RESTING COMFORTABLY, CALL LIGHT WITHIN REACH, FAMILY AT BEDSIDE.
--- NOTE | 2018-07-22 14:45 | NUR ---
PT UP IN CHAIR RESTING COMFORTABLY, CONTINUES TO DENY DIZZINESS OR LIGHTHEADEDNESS, CONVERSING WITH FAMILY, NO NEURO DEFICITS PRESENT. TOLERATING WELL, CALL LIGHT WITHIN REACH, FAMILY AT BEDSIDE.
--- NOTE | 2018-07-22 15:00 | NUR ---
DISCHARGE INSTRUCTIONS GIVEN PIV REMOVED AND INTACT, DISCHARGED HOME TO FAMILY VEHICLE VIA WHEELCHAIR.
--- NOTE | 2018-07-25 09:10 | NUR ---
DR PAPPAS AT BEDSIDE UPDATE GIVEN, ORDERS RECEIVED FOR NO INTERVENTION FROM NEURO STANDPOINT AT THIS TIME.
== END 2018-07-22 15:43 | disposition home or self-care (01) ==
LOC: EDH 22:35 → EDHIP 07-21 01:45 → 3AH 07-21 14:56 → 2DH 07-21 21:54
PROVIDERS: ADMIT Internal Medicine; ATTEND Internal Medicine
DX: S06.5X9A Traumatic subdural hemorrhage with loss of consciousness of unspecified duration, initial encounter (principal); E11.9 Type 2 diabetes mellitus without complications; E78.5 Hyperlipidemia, unspecified; I10 Essential (primary) hypertension; I25.10 Atherosclerotic heart disease of native coronary artery without angina pectoris; N39.0 Urinary tract infection, site not specified; W01.0XXA Fall on same level from slipping, tripping and stumbling without subsequent striking against object, initial encounter; Y92.009 Unspecified place in unspecified non-institutional (private) residence as the place of occurrence of the external cause; Y93.01 Activity, walking, marching and hiking; Y99.8 Other external cause status; Z95.1 Presence of aortocoronary bypass graft; Z83.3 Family history of diabetes mellitus; Z79.4 Long term (current) use of insulin; Z79.899 Other long term (current) drug therapy
CPT/HCPCS: 36415 ×2; 70450 ×3; 71045; 80048; 80053; 81001; 82550; 82948 ×6; 83036; 83540; 83550; 83735; 83880; 84100; 84484 ×2; 85025; 85027; 85610; 85730; 87077; 87088; 87186; 92522; 92610; 93005; 96372 ×2; 96374; 99284; G0378 ×38; G8996; G8997; G8998; J0696 ×2; J1815 ×2; J3490 ×2

== ENCOUNTER 2019-04-28 17:22 | Inpatient (IN) | payer MEDICARE ==
[~2019-04-28] VITALS: Ht 157.5 cm; Wt 62.1 kg
[~2019-04-28 17:22] MED LIST changes: +ASPI-1012 PO; -ASPI-891 PO; +FURO20TA4 PO; -FURO20TA6 PO; +GABA-529 PO; -METO25 PO; +METO25TA6 PO; +OMEP40CA13 PO; -OMEP40CA37 PO; -POTA20TA12 PO; -SENN-31 PO; +SIMV-43 PO; -SIMV20TA6 PO; -TRAM50TA4 PO
[2019-04-28] MEDS ORDERED: ONDANSETRON HCL 4 MG/2 ML VIAL ONE (17:40)
[2019-04-28] MEDS ORDERED: MORPHINE SULFATE 4 MG/1ML SYG ONE (17:41)
[2019-04-28 18:12] LABS: BASOPHILS % (AUTO) 0.8 % (0.0-5.0); EOSINOPHILS % (AUTO) 0.5 % (0.0-8.0); HEMATOCRIT 34.6 % (36-48); MEAN CORPUSCULAR HEMOGLOBIN 28.8 pg (27.0-33.0); MEAN CORPUSCULAR VOLUME 87.3 fL (79-99); MONOCYTES % (AUTO) 2.3 % (3.0-13.0); NEUTROPHILS % (AUTO) 85.4 % (40.0-77.0); PLATELET COUNT (AUTO) 142 K/uL (130-400); RED BLOOD CELL COUNT(AUTO) 3.96 MIL/uL (4.00-5.50); WHITE BLOOD COUNT (AUTO) 11.3 K/uL (4.8-10.8)
[2019-04-28 18:15] LABS: CREATININE 0.7 mg/dL (0.5-1.5)
[2019-04-28 18:18] LABS: INR 1.01 (0.85-1.15); PARTIAL THROMBOPLASTIN TIME 25.7 SEC (26.3-35.5); PROTHROMBIN TIME 10.6 SEC (9.6-11.6)
[2019-04-28 18:19] LABS: ALBUMIN 3.9 g/dL (3.5-5.0); BILIRUBIN,TOTAL 0.3 mg/dL (0.2-1.0); TOTAL PROTEIN, SERUM 8.1 g/dL (6.0-8.3)
[2019-04-28] MEDS ORDERED: MORPHINE SULFATE 8 MG/ML VIAL ONE (19:48)
[2019-04-28] MEDS ORDERED: GLUCAGON 1MG KIT 1 MG ML IM PRN (20:15)
[2019-04-28] MEDS ORDERED: DEXTROSE 50%-WATER 50 ML DISP.SYRIN IV PRN (20:15)
[2019-04-28 23:32] LABS: APPEARANCE,URINE Clear (CLEAR); BILIRUBIN,URINE Negative (NEGATIVE); COLOR,URINE Yellow (YELLOW); GLUCOSE, URINE (UA) >=1000 mg/dL (NEGATIVE); KETONES,URINE Trace mg/dL (NEGATIVE); LEUKOCYTE ESTERASE ,URINE Negative (NEGATIVE); NITRATE,URINE Negative (NEGATIVE); OCCULT BLOOD,URINE Trace (NEGATIVE); PROTEIN,URINE POS 2+ mg/dL (NEGATIVE)
[2019-04-29 00:04] LABS: BACTERIA,URINE Rare /HPF (None Seen); RBC,URINE 0-1 /HPF (0-1); SQUAMOUS EPITHELIAL CELL,UR 0-2 /HPF (0-2); WBC,URINE 0-1 /HPF (0-1)
[2019-04-29] MEDS ORDERED: MORPHINE SULFATE 4 MG/1ML SYG ONE (06:49)
[2019-04-29 06:55] LABS: BASOPHILS % (AUTO) 0.6 % (0.0-5.0); EOSINOPHILS % (AUTO) 0.1 % (0.0-8.0); LYMPHOCYTES % (AUTO) 7.1 % (21.0-51.0); MEAN CORPUSCULAR HEMOGLOBIN 29.1 pg (27.0-33.0); MEAN CORPUSCULAR HGB CONC 33.3 g/dL (32.0-36.0); MEAN CORPUSCULAR VOLUME 87.5 fL (79-99); MONOCYTES % (AUTO) 3.3 % (3.0-13.0); NEUTROPHILS % (AUTO) 88.9 % (40.0-77.0); PLATELET COUNT (AUTO) 136 K/uL (130-400); RED BLOOD CELL COUNT(AUTO) 3.77 MIL/uL (4.00-5.50); RED CELL DISTRIBUTION WIDTH 15.7 % (11.0-15.5); WHITE BLOOD COUNT (AUTO) 15.3 K/uL (4.8-10.8)
[2019-04-29 07:02] LABS: CREATININE 0.6 mg/dL (0.5-1.5); POTASSIUM 4.1 mmol/L (3.5-5.1)
[2019-04-29 07:07] LABS: ALBUMIN 3.7 g/dL (3.5-5.0); BILIRUBIN,TOTAL 0.7 mg/dL (0.2-1.0); TOTAL PROTEIN, SERUM 7.7 g/dL (6.0-8.3)
[2019-04-29] MEDS: HUMALOG PO SS1 SQ SCH ×4 (07:30→21:00)
[2019-04-29 08:46] VITALS: BP 194/57
[2019-04-29 10:45] LABS: HEMATOCRIT 34.6 % (36-48); MEAN CORPUSCULAR HEMOGLOBIN 29.3 pg (27.0-33.0); MEAN CORPUSCULAR VOLUME 88.7 fL (79-99); PLATELET COUNT (AUTO) 146 K/uL (130-400); RED CELL DISTRIBUTION WIDTH 15.8 % (11.0-15.5); WHITE BLOOD COUNT (AUTO) 18.2 K/uL (4.8-10.8)
[2019-04-29] MEDS: ENOXAPARIN SODIUM 30 MG/0.3 ML SQ SCH (10:45)
[2019-04-29] MEDS: MORPHINE SULFATE 4 MG/1ML SYG IVP PRN ×3 (10:46→21:40)
[2019-04-29] MEDS ORDERED: AEC81 PO (11:11)
[2019-04-29] MEDS ORDERED: EMPA10TA PO (11:11)
[2019-04-29 11:52] VITALS: BP 141/65
[2019-04-29] MEDS ORDERED: CEFTRIAXONE SODIUM 1 GM IVP SCH (13:00)
[2019-04-29 13:43] LABS: APPEARANCE,URINE Clear (CLEAR); BILIRUBIN,URINE Negative (NEGATIVE); COLOR,URINE Yellow (YELLOW); GLUCOSE, URINE (UA) >=1000 mg/dL (NEGATIVE); KETONES,URINE >=160 mg/dL (NEGATIVE); LEUKOCYTE ESTERASE ,URINE Negative (NEGATIVE); NITRATE,URINE Negative (NEGATIVE); OCCULT BLOOD,URINE Large (NEGATIVE); PROTEIN,URINE POS 1+ mg/dL (NEGATIVE)
[2019-04-29 14:01] LABS: BACTERIA,URINE Few /HPF (None Seen)
[2019-04-29 16:00] VITALS: BP 125/60
[2019-04-29 19:00] VITALS: BP 132/61
[2019-04-29] MEDS: SITAGLIPTIN PHOS PO SCH (21:00)
[2019-04-29] MEDS: METFORMIN HCL PO SCH (21:00)
[2019-04-29] MEDS: SIMVASTATIN 20 MG TABLET PO SCH (21:37)
[2019-04-29] MEDS: PANTOPRAZOLE SODIUM 40 MG TABLET.DR PO SCH (21:37)
[2019-04-29 23:40] VITALS: BP 121/56
[2019-04-30 04:00] VITALS: BP 132/63
[2019-04-30 04:26] LABS: HEMATOCRIT 33.5 % (36-48); MEAN CORPUSCULAR HEMOGLOBIN 28.8 pg (27.0-33.0); MEAN CORPUSCULAR HGB CONC 32.6 g/dL (32.0-36.0); MEAN CORPUSCULAR VOLUME 88.6 fL (79-99); PLATELET COUNT (AUTO) 162 K/uL (130-400); RED BLOOD CELL COUNT(AUTO) 3.79 MIL/uL (4.00-5.50); WHITE BLOOD COUNT (AUTO) 21.6 K/uL (4.8-10.8)
[2019-04-30 04:31] LABS: CREATININE 0.8 mg/dL (0.5-1.5); POTASSIUM 4.2 mmol/L (3.5-5.1)
[2019-04-30] MEDS: HUMALOG PO SS1 SQ SCH ×4 (06:41→21:00)
[2019-04-30 07:53] VITALS: BP 118/73
[2019-04-30] MEDS: INSULIN GLARGINE 100 UNITS/ML 10 ML VIAL SQ SCH (08:14)
[2019-04-30] MEDS ORDERED: ZOSYN 3.375GM+NS 50ML 50 ML IV SCH (08:15)
--- NOTE | 2019-04-30 08:15 | NUR ---
LANTUS HELD POOR APPETITE. ORAL MEDS GIVEN. [id number] WILL CONTINUE TO MONITOR.
[2019-04-30] MEDS: METOPROLOL TARTRATE PO SCH ×2 (08:16→21:00)
[2019-04-30] MEDS: SITAGLIPTIN PHOS PO SCH ×2 (08:17→21:00)
[2019-04-30] MEDS: METFORMIN HCL PO SCH ×2 (08:17→21:00)
[2019-04-30] MEDS ORDERED: VANCOMYCIN 1GM+NS 250ML 250 ML IV SCH (09:00)
[2019-04-30] MEDS: VANCOMYCIN 1GM+NS 250ML 250 ML IV SCH ×2 (09:51→09:58)
[2019-04-30] MEDS: PANTOPRAZOLE SODIUM 40 MG TABLET.DR PO SCH ×2 (09:52→21:04)
[2019-04-30] MEDS: ASPIRIN 81 MG EC TAB PO SCH (09:52)
[2019-04-30] MEDS: ZOSYN 3.375GM+NS 50ML 50 ML IV SCH ×2 (09:52→16:15)
[2019-04-30] MEDS: MORPHINE SULFATE 4 MG/1ML SYG IVP PRN ×3 (09:52→21:07)
[2019-04-30] MEDS: ENOXAPARIN SODIUM 30 MG/0.3 ML SQ SCH (09:55)
[2019-04-30 11:25] VITALS: BP 147/63
--- NOTE | 2019-04-30 14:34 | NUR ---
DC PLAN PER PATIENT, REQUIRES SOME ASSISTANCE WITH ADLS, LIVES ALONE, HAS PROVIDER 32 HR PER WEEK, HAS A WALKER AND WHEELCHAIR WELL SHOWER CHAIR. PATIENT FEELS SHE IS SAFE TO RETURN HOME. Addendum: 04/30/19 at 1437 by EUGENIA HURST RN Amended: Links added.
[2019-04-30 16:00] VITALS: BP 150/69
[2019-04-30 19:00] VITALS: BP 141/74
[2019-04-30] MEDS: SIMVASTATIN 20 MG TABLET PO SCH (21:04)
[2019-05-01] VITALS (7 sets, daily range): BP systolic 113–142; BP diastolic 48–62
[2019-05-01] MEDS: ZOSYN 3.375GM+NS 50ML 50 ML IV SCH ×3 (00:48→17:24)
[2019-05-01 04:30] LABS: HEMATOCRIT 30.9 % (36-48); MEAN CORPUSCULAR HEMOGLOBIN 29.4 pg (27.0-33.0); MEAN CORPUSCULAR HGB CONC 33.1 g/dL (32.0-36.0); MEAN CORPUSCULAR VOLUME 88.8 fL (79-99); PLATELET COUNT (AUTO) 141 K/uL (130-400); RED BLOOD CELL COUNT(AUTO) 3.48 MIL/uL (4.00-5.50); RED CELL DISTRIBUTION WIDTH 16.4 % (11.0-15.5); WHITE BLOOD COUNT (AUTO) 16.6 K/uL (4.8-10.8)
[2019-05-01 04:33] LABS: POTASSIUM 4.2 mmol/L (3.5-5.1)
[2019-05-01 04:51] LABS: BAND NEUTROPHILS % (MANUAL) 3 % (0-2); LYMPHOCYTES % (MANUAL) 7 % (22-44); MAN.DIFF COMMENT-IMPRESSION MANUAL DIFFERENTIAL; MONOCYTES % (MANUAL) 4 % (2-9); PLATELET MORPHOLOGY COMMENT ADEQUATE; SEGMENTED NEUTROPHILS % 86 % (40-70)
[2019-05-01] MEDS: HUMALOG PO SS1 SQ SCH ×5 (06:28→21:00)
[2019-05-01] MEDS ORDERED: ACETAMINOPHEN 325 MG TAB PO PRN (08:00)
[2019-05-01] MEDS ORDERED: ONDANSETRON HCL 4 MG/2 ML VIAL IVP PRN (08:00)
[2019-05-01] MEDS: VANCOMYCIN 1GM+NS 250ML 250 ML IV SCH (08:15)
[2019-05-01] MEDS: METOPROLOL TARTRATE 25 MG TAB PO SCH ×3 (08:21→21:22)
[2019-05-01] MEDS: PANTOPRAZOLE SODIUM 40 MG TABLET.DR PO SCH ×2 (08:22→21:21)
[2019-05-01] MEDS: ASPIRIN 81 MG EC TAB PO SCH (08:22)
[2019-05-01] MEDS: SITAGLIPTIN PHOS PO SCH ×2 (08:24→21:00)
[2019-05-01] MEDS: METFORMIN HCL PO SCH ×2 (08:24→21:00)
[2019-05-01] MEDS: ENOXAPARIN SODIUM 30 MG/0.3 ML SQ SCH (08:32)
[2019-05-01] MEDS: MORPHINE SULFATE 4 MG/1ML SYG IVP PRN ×3 (08:37→21:26)
[2019-05-01] MEDS: INSULIN GLARGINE 100 UNITS/ML 10 ML VIAL SQ SCH (09:43)
[2019-05-01] MEDS: SIMVASTATIN 20 MG TABLET PO SCH (21:22)
[2019-05-02] MEDS: ZOSYN 3.375GM+NS 50ML 50 ML IV SCH ×3 (00:52→18:35)
[2019-05-02 03:46] VITALS: BP 125/55
[2019-05-02 03:50] LABS: HEMATOCRIT 29.7 % (36-48); MEAN CORPUSCULAR HEMOGLOBIN 28.9 pg (27.0-33.0); MEAN CORPUSCULAR HGB CONC 32.9 g/dL (32.0-36.0); MEAN CORPUSCULAR VOLUME 87.8 fL (79-99); PLATELET COUNT (AUTO) 134 K/uL (130-400); RED BLOOD CELL COUNT(AUTO) 3.38 MIL/uL (4.00-5.50); WHITE BLOOD COUNT (AUTO) 13.3 K/uL (4.8-10.8)
[2019-05-02 04:06] LABS: CREATININE 0.7 mg/dL (0.5-1.5); POTASSIUM 3.6 mmol/L (3.5-5.1)
[2019-05-02] MEDS: HUMALOG PO SS1 SQ SCH ×4 (06:02→20:42)
[2019-05-02 07:39] VITALS: BP 138/73
[2019-05-02] MEDS: PANTOPRAZOLE SODIUM 40 MG TABLET.DR PO SCH ×2 (08:58→20:42)
[2019-05-02] MEDS: METOPROLOL TARTRATE 25 MG TAB PO SCH ×2 (08:59→20:42)
[2019-05-02] MEDS: METFORMIN HCL PO SCH ×2 (09:00→20:41)
[2019-05-02] MEDS: SITAGLIPTIN PHOS PO SCH ×2 (09:00→20:41)
[2019-05-02] MEDS: INSULIN GLARGINE 100 UNITS/ML 10 ML VIAL SQ SCH (09:00)
[2019-05-02] MEDS: ASPIRIN 81 MG EC TAB PO SCH (09:00)
[2019-05-02] MEDS: VANCOMYCIN 1GM+NS 250ML 250 ML IV SCH ×2 (09:00→20:41)
[2019-05-02] MEDS: ENOXAPARIN SODIUM 30 MG/0.3 ML SQ SCH (09:00)
[2019-05-02] MEDS: MORPHINE SULFATE 4 MG/1ML SYG IVP PRN (10:41)
--- NOTE | 2019-05-02 10:54 | NUR ---
PER DR. LIZ SX WILL BE TOMORROW AT 1000
[2019-05-02 11:00] VITALS: BP 134/44
[2019-05-02 17:09] VITALS: BP 128/58
[2019-05-02 19:20] VITALS: BP 142/63
[2019-05-02] MEDS: SIMVASTATIN 20 MG TABLET PO SCH (20:41)
[2019-05-02 23:19] VITALS: BP 143/66
[2019-05-03] VITALS (25 sets, daily range): BP systolic 106–158; BP diastolic 46–94
[2019-05-03] MEDS: ZOSYN 3.375GM+NS 50ML 50 ML IV SCH ×4 (00:32→17:39)
[2019-05-03] MEDS: HUMALOG PO SS1 SQ SCH ×4 (05:58→21:00)
[2019-05-03 07:58] LABS: HEMATOCRIT 29.7 % (36-48); MEAN CORPUSCULAR HEMOGLOBIN 29.8 pg (27.0-33.0); MEAN CORPUSCULAR HGB CONC 33.5 g/dL (32.0-36.0); PLATELET COUNT (AUTO) 118 K/uL (130-400); RED BLOOD CELL COUNT(AUTO) 3.33 MIL/uL (4.00-5.50); WHITE BLOOD COUNT (AUTO) 11.8 K/uL (4.8-10.8)
[2019-05-03] MEDS: ENOXAPARIN SODIUM 30 MG/0.3 ML SQ SCH (09:00)
[2019-05-03] MEDS: SITAGLIPTIN PHOS PO SCH ×2 (09:00→12:20)
[2019-05-03] MEDS: PANTOPRAZOLE SODIUM 40 MG TABLET.DR PO SCH ×2 (09:00→20:23)
[2019-05-03] MEDS: INSULIN GLARGINE 100 UNITS/ML 10 ML VIAL SQ SCH (09:00)
[2019-05-03] MEDS: VANCOMYCIN 1GM+NS 250ML 250 ML IV SCH ×3 (09:00→22:18)
[2019-05-03] MEDS: METOPROLOL TARTRATE 25 MG TAB PO SCH ×2 (09:00→20:23)
[2019-05-03] MEDS: METFORMIN HCL PO SCH ×2 (09:00→12:20)
[2019-05-03] MEDS: ASPIRIN 81 MG EC TAB PO SCH (09:00)
--- NOTE | 2019-05-03 09:00 | NUR ---
METOPROLOL NON-ADMIN OR NURSE, ALYSSA KYLE HERE FOR PATIENT. INFORMED I WAS ABOUT TO ADMINISTER SCHEDULED METOPROLOL DOSE. OR NURSE CALLED FARM MACHINERY ASSEMBLER AND I WAS TOLD IT WAS OKAY TO HOLD OFF ON DOSE FOR NOW. PATIENT RECEIVED LAST SCHEDULED YESTERDAY AROUND 1999. SCHEDULED VANCOMYCIN AND ZOSYN PROVIDED TO OR NURSE TO BE GIVEN IN OR.
[2019-05-03 09:06] LABS: BASOPHILS % (MANUAL) 1 % (0-2); EOSINOPHILS % (MANUAL) 1 % (1-6); LYMPHOCYTES % (MANUAL) 12 % (22-44); MAN.DIFF COMMENT-IMPRESSION MANUAL DIFFERENTIAL; MONOCYTES % (MANUAL) 5 % (2-9); SEGMENTED NEUTROPHILS % 81 % (40-70)
[2019-05-03] MEDS ORDERED: LIDOCAINE HCL 2% 20ML ONE (10:13)
[2019-05-03] MEDS ORDERED: ROPIVACAINE 0.5% 5MG/ML 30ML IJ ONE (10:13)
[2019-05-03] MEDS ORDERED: KETAMINE 50MG/ML SYRINGE 50 MG/ML DISP.SYRIN IV ONE (10:14)
[2019-05-03] MEDS ORDERED: PROPOFOL 10 MG/ML 20ML VIAL IV ONE (10:39)
[2019-05-03] MEDS ORDERED: LIDOCAINE HCL MPF 1% 5ML VIAL ONE (10:39)
[2019-05-03] MEDS ORDERED: ONDANSETRON HCL 4 MG/2 ML VIAL ONE (11:29)
[2019-05-03] MEDS ORDERED: SODIUM CHLORIDE 0.9% 1000ML 1,000 ML IV ONE (12:07)
[2019-05-03] MEDS: MORPHINE SULFATE 4 MG/1ML SYG IVP PRN (15:06)
[2019-05-03] MEDS: SODIUM CHLORIDE 0.9% 1000ML 1,000 ML IV SCH ×2 (17:40→22:18)
[2019-05-03] MEDS: HYDROCODONE/ACETAMINOPHEN 5/325 MG TAB PO PRN ×2 (18:09→22:18)
[2019-05-03] MEDS: SIMVASTATIN 20 MG TABLET PO SCH (20:23)
[2019-05-04] MEDS: MORPHINE SULFATE 4 MG/1ML SYG IVP PRN ×3 (00:09→10:00)
[2019-05-04] MEDS: ZOSYN 3.375GM+NS 50ML 50 ML IV SCH ×3 (00:13→17:33)
[2019-05-04 04:00] VITALS: BP 119/55
[2019-05-04] MEDS: INSULIN LISPRO 100 UNIT/ML 3ML SQ SCH ×3 (06:32→16:30)
[2019-05-04 07:30] VITALS: BP 104/63
[2019-05-04] MEDS: SITAGLIPTIN PHOS PO SCH ×2 (07:44→21:00)
[2019-05-04] MEDS: METFORMIN HCL PO SCH ×2 (07:44→21:00)
[2019-05-04] MEDS: POLYETHYLENE GLYCOL 3350 17 GM POWD.PACK PO SCH (08:53)
[2019-05-04] MEDS: ASPIRIN 81 MG EC TAB PO SCH (08:53)
[2019-05-04] MEDS: METOPROLOL TARTRATE 25 MG TAB PO SCH ×2 (08:53→21:53)
[2019-05-04] MEDS: PANTOPRAZOLE SODIUM 40 MG TABLET.DR PO SCH ×2 (08:54→21:53)
[2019-05-04] MEDS: HYDROCODONE/ACETAMINOPHEN 5/325 MG TAB PO PRN ×3 (08:54→21:56)
[2019-05-04] MEDS: ENOXAPARIN SODIUM 30 MG/0.3 ML SQ SCH (08:54)
[2019-05-04] MEDS: VANCOMYCIN 1GM+NS 250ML 250 ML IV SCH ×2 (08:55→21:55)
[2019-05-04] MEDS: SODIUM CHLORIDE 0.9% 1000ML 1,000 ML IV SCH (08:55)
[2019-05-04] MEDS: INSULIN GLARGINE 100 UNITS/ML 10 ML VIAL SQ SCH (09:14)
[2019-05-04 11:00] VITALS: BP 114/40
[2019-05-04] MEDS: PSYLLIUM SEED 1 EACH PACKET PO SCH (13:15)
--- NOTE | 2019-05-04 15:21 | NUR ---
CM Note: [facility] pending acceptance CM met with pt and daughter Barbara Montalvo, discussed MD recommendations for short term placement rehab, daughter agreeable. ZANDER signed for [facility]. Faxed order, clinicals, PT, and PASRR, confirmation received. Spoke to Smita joe/[facility], will come eval pt. Pt pending acceptance. EMS arranged and faxed for tomorrow, primary nurse to call [facility] once pt ready to DC. Primary nurse aware. CM to cont to follow up.
--- NOTE | 2019-05-04 15:27 | NUR ---
RDSCREEN - LOS X 6 Pt admitted for Left Hip Fracture. Pt s/p Left Hip Surgery as per EMR. Pt tolerating current diet order with no report of GI distress, fair PO intake at 50-75%. RD to add Glucerna QD as per Pt request. Pt LBM 04/29/19. Pt monitored labs: BG 147, BUN 32. RD to continue to monitor. Please notify RD as additional nutrition concerns arise. Thank you. Addendum: 05/04/19 at [address] Amended: Links added.
[2019-05-04 16:00] VITALS: BP 114/52
[2019-05-04 19:00] VITALS: BP 108/49
[2019-05-04] MEDS: SIMVASTATIN 20 MG TABLET PO SCH (21:53)
[2019-05-04] MEDS ORDERED: BISACODYL 5 MG TABLET.DR PO ONE (22:00)
[2019-05-05] VITALS: BP 106/40
[2019-05-05] MEDS: ZOSYN 3.375GM+NS 50ML 50 ML IV SCH ×3 (01:11→17:07)
[2019-05-05 04:00] VITALS: BP 109/47
[2019-05-05 04:31] LABS: HEMATOCRIT 21.5 % (36-48); MEAN CORPUSCULAR HEMOGLOBIN 30.2 pg (27.0-33.0); MEAN CORPUSCULAR HGB CONC 34.1 g/dL (32.0-36.0); MEAN CORPUSCULAR VOLUME 88.7 fL (79-99); PLATELET COUNT (AUTO) 129 K/uL (130-400); RED BLOOD CELL COUNT(AUTO) 2.43 MIL/uL (4.00-5.50); RED CELL DISTRIBUTION WIDTH 15.9 % (11.0-15.5); WHITE BLOOD COUNT (AUTO) 13.7 K/uL (4.8-10.8)
[2019-05-05 05:01] LABS: CREATININE 0.9 mg/dL (0.5-1.5); POTASSIUM 3.6 mmol/L (3.5-5.1)
[2019-05-05] MEDS: INSULIN LISPRO 100 UNIT/ML 3ML SQ SCH ×2 (06:07→16:30)
[2019-05-05 07:30] VITALS: BP 110/44
[2019-05-05] MEDS: SITAGLIPTIN PHOS PO SCH ×2 (09:00→20:05)
[2019-05-05] MEDS ORDERED: IRON SUCROSE COMPLEX 100 MG in SODIUM CHLORIDE 0.9% 50 ML IV SCH (09:00)
[2019-05-05] MEDS ORDERED: COMPOUND IV MISC 1 EACH IVSOLN MISC PRN (09:00)
[2019-05-05] MEDS: METFORMIN HCL PO SCH ×2 (09:00→20:05)
[2019-05-05] MEDS: POLYETHYLENE GLYCOL 3350 17 GM POWD.PACK PO SCH (09:31)
[2019-05-05] MEDS: VANCOMYCIN 1GM+NS 250ML 250 ML IV SCH ×2 (09:31→20:04)
[2019-05-05] MEDS: ASPIRIN 81 MG EC TAB PO SCH (09:31)
[2019-05-05] MEDS: METOPROLOL TARTRATE 25 MG TAB PO SCH ×2 (09:31→20:04)
[2019-05-05] MEDS: PANTOPRAZOLE SODIUM 40 MG TABLET.DR PO SCH ×2 (09:32→20:04)
[2019-05-05] MEDS: ENOXAPARIN SODIUM 30 MG/0.3 ML SQ SCH (09:32)
--- NOTE | 2019-05-05 09:33 | NUR ---
CM Note: [facility] acceptance CM spoke to Smita w/[facility], pt has acceptance, PASRR received. As per Dr Dudley dcp for tomorrow instead, wanted to keep pt one more night tonight. EMS arranged and faxed for tomorrow, primary nurse to call [facility] once pt ready to DC. Primary nurse aware. CM to cont to follow up.
[2019-05-05] MEDS: INSULIN GLARGINE 100 UNITS/ML 10 ML VIAL SQ SCH (09:42)
[2019-05-05 11:00] VITALS: BP 119/44
[2019-05-05] MEDS: PSYLLIUM SEED 1 EACH PACKET PO SCH (11:43)
[2019-05-05 16:00] VITALS: BP 124/52
[2019-05-05] MEDS: SIMVASTATIN 20 MG TABLET PO SCH (20:04)
[2019-05-05] MEDS: BISACODYL 5 MG TABLET.DR PO PRN (20:05)
[2019-05-05 20:21] VITALS: BP 119/52
[2019-05-06] VITALS (7 sets, daily range): BP systolic 111–137; BP diastolic 52–64
[2019-05-06] MEDS: ZOSYN 3.375GM+NS 50ML 50 ML IV SCH (00:56)
[2019-05-06 04:56] LABS: MEAN CORPUSCULAR HEMOGLOBIN 29.1 pg (27.0-33.0); MEAN CORPUSCULAR HGB CONC 33.4 g/dL (32.0-36.0); MEAN CORPUSCULAR VOLUME 87.2 fL (79-99); NUCLEATED RED BLOOD CELLS 0.1 % (0.0-0.19); PLATELET COUNT (AUTO) 116 K/uL (130-400); RED BLOOD CELL COUNT(AUTO) 2.35 MIL/uL (4.00-5.50); RED CELL DISTRIBUTION WIDTH 16.3 % (11.0-15.5); WHITE BLOOD COUNT (AUTO) 13.6 K/uL (4.8-10.8)
[2019-05-06 04:59] LABS: HEMATOCRIT 20.4 % (36-48)
[2019-05-06 05:17] LABS: ALBUMIN 1.9 g/dL (3.5-5.0); BILIRUBIN,TOTAL 0.7 mg/dL (0.2-1.0); CREATININE 0.6 mg/dL (0.5-1.5); TOTAL PROTEIN, SERUM 5.7 g/dL (6.0-8.3)
[2019-05-06 05:28] LABS: POTASSIUM 2.6 mmol/L (3.5-5.1)
[2019-05-06] MEDS ORDERED: POTASSIUM CHLORIDE 10% ELIXIR 20 MEQ/15 ML UDCUP PO PRN (06:30)
[2019-05-06] MEDS: INSULIN LISPRO 100 UNIT/ML 3ML SQ SCH ×2 (06:34→16:13)
[2019-05-06] MEDS: MEROPENEM 500 MG VIAL IVP SCH ×2 (08:22→16:14)
[2019-05-06] MEDS: ASPIRIN 81 MG EC TAB PO SCH (08:23)
[2019-05-06] MEDS: FERROUS SULFATE 325 MG TABLET.DR PO SCH (08:23)
[2019-05-06] MEDS: PANTOPRAZOLE SODIUM 40 MG TABLET.DR PO SCH ×2 (08:24→20:52)
[2019-05-06] MEDS: METOPROLOL TARTRATE 25 MG TAB PO SCH ×2 (08:24→20:52)
[2019-05-06] MEDS: INSULIN GLARGINE 100 UNITS/ML 10 ML VIAL SQ SCH (08:25)
[2019-05-06] MEDS: METFORMIN HCL PO SCH ×2 (08:26→20:54)
[2019-05-06] MEDS: SITAGLIPTIN PHOS PO SCH ×2 (08:26→20:54)
[2019-05-06] MEDS: POLYETHYLENE GLYCOL 3350 17 GM POWD.PACK PO SCH (08:26)
[2019-05-06] MEDS: LIDOCAINE HCL-MPF 1% 2ML VIAL IV PRN ×2 (09:07→16:12)
[2019-05-06] MEDS: POTASSIUM CHLORIDE 20MEQ/100ML 100 ML IV PRN ×2 (09:07→15:20)
[2019-05-06 10:04] LABS: INR 0.99 (0.85-1.15); PARTIAL THROMBOPLASTIN TIME 29.1 SEC (26.3-35.5); PROTHROMBIN TIME 10.4 SEC (9.6-11.6)
[2019-05-06] MEDS ORDERED: BISACODYL 10 MG SUPP.RECT RC PRN (12:15)
[2019-05-06] MEDS: PSYLLIUM SEED 1 EACH PACKET PO SCH (12:20)
[2019-05-06] MEDS: POTASSIUM CHLORIDE 20 MEQ ERTAB PO PRN ×3 (15:19→23:17)
[2019-05-06] MEDS: BISACODYL 5 MG TABLET.DR PO PRN (18:57)
[2019-05-06] MEDS: SIMVASTATIN 20 MG TABLET PO SCH (20:52)
[2019-05-06] MEDS: HYDROCODONE/ACETAMINOPHEN 5/325 MG TAB PO PRN (23:35)
[2019-05-07] MEDS: MEROPENEM 500 MG VIAL IVP SCH ×2 (01:28→08:44)
[2019-05-07 04:00] VITALS: BP 126/56
[2019-05-07 04:32] LABS: HEMATOCRIT 25.3 % (36-48); MEAN CORPUSCULAR HEMOGLOBIN 29.5 pg (27.0-33.0); MEAN CORPUSCULAR HGB CONC 33.7 g/dL (32.0-36.0); MEAN CORPUSCULAR VOLUME 87.4 fL (79-99); PLATELET COUNT (AUTO) 111 K/uL (130-400); RED BLOOD CELL COUNT(AUTO) 2.89 MIL/uL (4.00-5.50); WHITE BLOOD COUNT (AUTO) 13.4 K/uL (4.8-10.8)
[2019-05-07 04:44] LABS: BAND NEUTROPHILS % (MANUAL) 2 % (0-2); LYMPHOCYTES % (MANUAL) 12 % (22-44); MAN.DIFF COMMENT-IMPRESSION MANUAL DIFFERENTIAL; METAMYELOCYTES % 1 % (0-0); MONOCYTES % (MANUAL) 3 % (2-9); SEGMENTED NEUTROPHILS % 82 % (40-70)
[2019-05-07 04:45] LABS: PLATELET MORPHOLOGY COMMENT LARGE PLTS PRESENT
[2019-05-07 04:56] LABS: ALBUMIN 1.9 g/dL (3.5-5.0); BILIRUBIN,TOTAL 0.7 mg/dL (0.2-1.0); CREATININE 0.6 mg/dL (0.5-1.5); POTASSIUM 3.6 mmol/L (3.5-5.1); TOTAL PROTEIN, SERUM 5.7 g/dL (6.0-8.3)
[2019-05-07] MEDS: INSULIN LISPRO 100 UNIT/ML 3ML SQ SCH (06:28)
[2019-05-07] MEDS: POTASSIUM CHLORIDE 20 MEQ ERTAB PO PRN (06:29)
[2019-05-07 07:30] VITALS: BP 116/53
--- NOTE | 2019-05-07 07:35 | NUR ---
DR. HERNANDEZ NG IN TO SEE PATIENT. NEW ORDERS RECEIVED. OK TO USE PICC LINE.
[2019-05-07] MEDS: POLYETHYLENE GLYCOL 3350 17 GM POWD.PACK PO SCH (08:44)
[2019-05-07] MEDS: PANTOPRAZOLE SODIUM 40 MG TABLET.DR PO SCH (08:46)
[2019-05-07] MEDS: FERROUS SULFATE 325 MG TABLET.DR PO SCH (08:46)
[2019-05-07] MEDS: METOPROLOL TARTRATE 25 MG TAB PO SCH (08:46)
[2019-05-07] MEDS: ASPIRIN 81 MG EC TAB PO SCH (08:46)
[2019-05-07] MEDS: METFORMIN HCL PO SCH (08:47)
[2019-05-07] MEDS: SITAGLIPTIN PHOS PO SCH (08:47)
[2019-05-07] MEDS: INSULIN GLARGINE 100 UNITS/ML 10 ML VIAL SQ SCH (09:00)
[2019-05-07] MEDS: BISACODYL 5 MG TABLET.DR PO PRN (09:13)
[2019-05-07 11:00] VITALS: BP 138/63
[2019-05-07] MEDS: PSYLLIUM SEED 1 EACH PACKET PO SCH (11:34)
--- NOTE | 2019-05-07 11:45 | NUR ---
INSTRUCTIONS DISCHARGE INSTRUCTIONS GIVEN TO PATIENT AND FAMILY USING TEACH BACK. BILATERAL IV'S REMOVED WITH TIP INTACT. PICC LINE WILL REMAIN IN PLACE FOR ADMINISTRATION OF IV ANTIBIOTICS. F/U APPOINTMENT HAS BEEN MADE WITH ORTHOPEDIC SURGEON. ALL PRINTED INFORMATION PLACED IN PACKET ALONG WITH ALL INFORMATION ON NEW PRESCRIPTIONS. NO QUESTIONS OR CONCERNS VOICED. REPORT HAS BEEN CALLED TO TREY PAREDES AT [facility]. PENDING ARRIVAL OF EMS FOR TRANSPORT.
[2019-05-07] MEDS: HYDROCODONE/ACETAMINOPHEN 5/325 MG TAB PO PRN (11:46)
== END 2019-05-07 14:34 | DRG 480 ==
LOC: EDH 17:22 → EDHIP 19:45 → 4BH 04-29 08:12
PROVIDERS: ADMIT Internal Medicine; ATTEND Internal Medicine
PROC: 0QS706Z Reposition Left Upper Femur with Intramedullary Internal Fixation Device, Open Approach (ICD-10-PCS; principal; 2019-05-03 10:10)
PROC: 02HV33Z Insertion of Infusion Device into Superior Vena Cava, Percutaneous Approach (ICD-10-PCS; 2019-05-06)
PROC: B548ZZA Ultrasonography of Superior Vena Cava, Guidance (ICD-10-PCS; 2019-05-06)
PROC: 30233N1 Transfusion of Nonautologous Red Blood Cells into Peripheral Vein, Percutaneous Approach (ICD-10-PCS; 2019-05-06)
DX: S72.142A Displaced intertrochanteric fracture of left femur, initial encounter for closed fracture (principal); J18.9 Pneumonia, unspecified organism; N39.0 Urinary tract infection, site not specified; I25.10 Atherosclerotic heart disease of native coronary artery without angina pectoris; I10 Essential (primary) hypertension; E78.5 Hyperlipidemia, unspecified; E11.9 Type 2 diabetes mellitus without complications; D64.9 Anemia, unspecified; E87.6 Hypokalemia; Z96.651 Presence of right artificial knee joint; B96.1 Klebsiella pneumoniae [K. pneumoniae] as the cause of diseases classified elsewhere; W01.0XXA Fall on same level from slipping, tripping and stumbling without subsequent striking against object, initial encounter; Y93.89 Activity, other specified; Y92.89 Other specified places as the place of occurrence of the external cause; Y99.8 Other external cause status; Z95.1 Presence of aortocoronary bypass graft
CPT/HCPCS: 36415; 36430; 71045; 71250; 73502; 80048; 80053; 80202; 81001; 82948; 85025; 85027; 85610; 85730; 86850; 86900; 86901; 86922; 87040; 87077; 87088; 87186; 93005; 97039; C1894; G0378; J0696; J1650; J1756; J2185; J2270; J2405; J2543; J2704; J2795; J3370; J3480; J3490; J7030; P9016

== ENCOUNTER 2020-12-09 09:39 | Emergency (ER) | payer MEDICARE ==
[~2020-12-09] VITALS: Ht 154.9 cm; Wt 63.5 kg
[~2020-12-09 09:39] MED LIST changes: +AEC81 PO; -ASPI-1012 PO; +EMPA10TA PO; -FURO20TA4 PO; -GABA-529 PO; -INSNOV IVP; -OMEP40CA13 PO; +OMEP40CA21 PO
[2020-12-09 09:46] VITALS: BP 146/57
[2020-12-09 10:46] VITALS: BP 142/58
[2020-12-09 12:20] VITALS: BP 138/62
[2020-12-09 13:24] VITALS: BP 142/68
[2020-12-09 14:40] VITALS: BP 136/58
[2020-12-09] MEDS ORDERED: NAPR125O4 PO (14:53)
== END 2020-12-09 15:40 | disposition home or self-care (01) ==
LOC: EDH 09:39
DX: S42.214A Unspecified nondisplaced fracture of surgical neck of right humerus, initial encounter for closed fracture (principal); S22.31XA Fracture of one rib, right side, initial encounter for closed fracture; J90 Pleural effusion, not elsewhere classified; E78.00 Pure hypercholesterolemia, unspecified; I25.10 Atherosclerotic heart disease of native coronary artery without angina pectoris; I10 Essential (primary) hypertension; E11.9 Type 2 diabetes mellitus without complications; Z79.4 Long term (current) use of insulin; Z95.1 Presence of aortocoronary bypass graft; Z90.49 Acquired absence of other specified parts of digestive tract; Z79.899 Other long term (current) drug therapy; Z79.82 Long term (current) use of aspirin; W06.XXXA Fall from bed, initial encounter; Y93.89 Activity, other specified; Y92.098 Other place in other non-institutional residence as the place of occurrence of the external cause; Y99.8 Other external cause status
CPT/HCPCS: 29105; 70450; 71100; 71250; 73030; 73060

== ENCOUNTER → 2022-03-14 | Outpatient (CLI) | payer MEDICARE ==
[~2022-03-14] MED LIST changes: -AEC81 PO; +ALEN70TA80 PO; -EMPA10TA PO; +FERR-82 PO; +FOLI0.4T6 PO; -METO25TA6 PO; +NAPR125O4 PO; -OMEP40CA21 PO; +PRAV20TA4 PO; -SIMV-43 PO
== END | disposition home or self-care (01) ==
LOC: SHCH 13:24
PROVIDERS: ATTEND Internal Medicine Cardiovascular Disease
DX: I08.8 Other rheumatic multiple valve diseases (principal); I11.9 Hypertensive heart disease without heart failure; I27.20 Pulmonary hypertension, unspecified; E11.9 Type 2 diabetes mellitus without complications; E78.5 Hyperlipidemia, unspecified
CPT/HCPCS: 93306

== ENCOUNTER → 2022-04-02 | Outpatient (CLI) | payer MEDICARE ==
[~2022-04-02] MED LIST changes: +OSEL75 PO; +REGADENOSON 0.4 MG/5 ML PF SYG IVP SCH
== END | disposition home or self-care (01) ==
LOC: SHCH 08:05
PROVIDERS: ATTEND Internal Medicine Cardiovascular Disease
DX: R06.00 Dyspnea, unspecified (principal); Z79.899 Other long term (current) drug therapy
CPT/HCPCS: 78452; 96374; 93017; J2785; A9500 ×2

== ENCOUNTER 2022-04-03 17:41 | Inpatient (IN) | payer MEDICARE ==
[~2022-04-03] VITALS: Ht 152.4 cm; Wt 64.3 kg
[~2022-04-03 17:41] MED LIST changes: -OSEL75 PO; -REGADENOSON 0.4 MG/5 ML PF SYG IVP SCH
[2022-04-03 18:28] LABS: BASOPHILS % (AUTO) 0.8 % (0.0-5.0); EOSINOPHILS % (AUTO) 0.2 % (0.0-8.0); HEMATOCRIT 30.3 % (36-48); LYMPHOCYTES % (AUTO) 1.6 % (21.0-51.0); MEAN CORPUSCULAR HEMOGLOBIN 33.8 pg (27.0-33.0); MEAN CORPUSCULAR VOLUME 102.4 fL (79-99); MONOCYTES % (AUTO) 2.9 % (3.0-13.0); NEUTROPHILS % (AUTO) 93.5 % (40.0-77.0); NUCLEATED RED BLOOD CELLS 2.5 % (0.0-0.19); PLATELET COUNT (AUTO) 136 K/uL (130-400); RED BLOOD CELL COUNT(AUTO) 2.96 MIL/uL (4.00-5.50); RED CELL DISTRIBUTION WIDTH 19.3 % (11.0-15.5); WHITE BLOOD COUNT (AUTO) 16.7 K/uL (4.8-10.8)
[2022-04-03] MEDS ORDERED: ACETAMINOPHEN 325 MG TAB PO ONE (18:30)
[2022-04-03 18:37] LABS: INR 1.5 (0.85-1.15)
[2022-04-03 18:43] LABS: POTASSIUM 4.4 mmol/L (3.5-5.1)
[2022-04-03 18:47] LABS: B-TYPE NATRIURETIC PEPTIDE 1170 pg/mL (0-100)
[2022-04-03 18:50] LABS: ALBUMIN 3.8 g/dL (3.5-5.0); TOTAL PROTEIN, SERUM 7.8 g/dL (6.0-8.3)
[2022-04-03] MEDS ORDERED: IPRATROPIUM/ALBUTEROL SULFATE 3 ML SOLUTION IH SCH (18:54)
[2022-04-03] MEDS ORDERED: OSELTAMIVIR PHOSPHATE 75 MG CAP PO SCH (18:54)
[2022-04-03] MEDS ORDERED: FUROSEMIDE 40MG VIAL IV SCH ×2 (18:54→21:30)
[2022-04-03 19:09] LABS: PLATELET MORPHOLOGY LARGE PLTS PRESENT
[2022-04-03] MEDS ORDERED: CEFTRIAXONE 1G VIAL IVP SCH (21:00)
[2022-04-03 21:04] LABS: ABG HCO3 20.9 mmol/L (21.0-28.0); ABG OXYGEN SATURATION 96.8 % (95.0-99.0); ABG PCO2 33 mmHg (32-45)
[2022-04-03] MEDS ORDERED: CEFTRIAXONE 1G VIAL ONE (21:14)
[2022-04-03] MEDS: CEFTRIAXONE 1G VIAL IV SCH (21:22)
[2022-04-03] MEDS: AZITHROMYCIN 500MG+NS 250ML 250 ML IV SCH (21:36)
[2022-04-03 23:20] VITALS: BP 141/80
[2022-04-04] MEDS: ALBUTEROL 0.083% 2.5 MG/3 ML INH IH SCH ×5 (01:02→23:05)
[2022-04-04 04:00] VITALS: BP 134/67
[2022-04-04 05:28] LABS: BASOPHILS % (AUTO) 0.4 % (0.0-5.0); EOSINOPHILS % (AUTO) 0.1 % (0.0-8.0); HEMATOCRIT 28.7 % (36-48); LYMPHOCYTES % (AUTO) 2.7 % (21.0-51.0); MEAN CORPUSCULAR HEMOGLOBIN 33.8 pg (27.0-33.0); MEAN CORPUSCULAR HGB CONC 33.8 g/dL (32.0-36.0); MONOCYTES % (AUTO) 3.3 % (3.0-13.0); NUCLEATED RED BLOOD CELLS 1.5 % (0.0-0.19); PLATELET COUNT (AUTO) 100 K/uL (130-400); RED BLOOD CELL COUNT(AUTO) 2.87 MIL/uL (4.00-5.50); WHITE BLOOD COUNT (AUTO) 11.3 K/uL (4.8-10.8)
[2022-04-04 05:48] LABS: ALBUMIN 3.7 g/dL (3.5-5.0); CREATININE 0.9 mg/dL (0.5-1.5); POTASSIUM 3.5 mmol/L (3.5-5.1); TOTAL PROTEIN, SERUM 7.6 g/dL (6.0-8.3)
[2022-04-04] MEDS: INSULIN HUMULIN R 100 UNIT/ML 3ML SQ SCH ×3 (06:11→21:00)
[2022-04-04] MEDS ORDERED: ONDANSETRON 4MG INJ IVP PRN (07:00)
[2022-04-04 08:00] VITALS: BP 127/69
[2022-04-04] MEDS ORDERED: ACETAMINOPHEN 500 MG TABLET ONE (09:11)
[2022-04-04] MEDS: ENOXAPARIN SODIUM 40 MG/0.4 ML SYRINGE SQ SCH (09:25)
[2022-04-04] MEDS: OSELTAMIVIR PHOSPHATE 75 MG CAP PO SCH ×2 (09:26→21:44)
[2022-04-04 12:00] VITALS: BP 98/46
[2022-04-04 16:00] VITALS: BP 127/56
[2022-04-04 19:00] VITALS: BP 120/70
[2022-04-04] MEDS: AZITHROMYCIN 500MG+NS 250ML 250 ML IV SCH (21:43)
[2022-04-04] MEDS: CEFTRIAXONE 1G VIAL IV SCH (21:44)
[2022-04-04 23:22] VITALS: BP 111/51
[2022-04-05 03:36] VITALS: BP 104/49
[2022-04-05 05:46] LABS: BASOPHILS % (AUTO) 0.7 % (0.0-5.0); EOSINOPHILS % (AUTO) 0.2 % (0.0-8.0); HEMATOCRIT 26.2 % (36-48); LYMPHOCYTES % (AUTO) 11.1 % (21.0-51.0); MEAN CORPUSCULAR HEMOGLOBIN 34.2 pg (27.0-33.0); MEAN CORPUSCULAR HGB CONC 34.4 g/dL (32.0-36.0); MEAN CORPUSCULAR VOLUME 99.6 fL (79-99); MONOCYTES % (AUTO) 4.2 % (3.0-13.0); NEUTROPHILS % (AUTO) 83.3 % (40.0-77.0); NUCLEATED RED BLOOD CELLS 1.2 % (0.0-0.19); PLATELET COUNT (AUTO) 78 K/uL (130-400); RED BLOOD CELL COUNT(AUTO) 2.63 MIL/uL (4.00-5.50); RED CELL DISTRIBUTION WIDTH 18.9 % (11.0-15.5); WHITE BLOOD COUNT (AUTO) 4.3 K/uL (4.8-10.8)
[2022-04-05 05:48] LABS: ALBUMIN 3.2 g/dL (3.5-5.0); CREATININE 0.7 mg/dL (0.5-1.5); POTASSIUM 3.1 mmol/L (3.5-5.1); TOTAL PROTEIN, SERUM 6.6 g/dL (6.0-8.3)
[2022-04-05] MEDS: ALBUTEROL 0.083% 2.5 MG/3 ML INH IH SCH ×4 (06:38→23:00)
[2022-04-05] MEDS: INSULIN HUMULIN R 100 UNIT/ML 3ML SQ SCH ×4 (06:41→21:59)
[2022-04-05 07:52] VITALS: BP 119/58
[2022-04-05] MEDS: ENOXAPARIN SODIUM 40 MG/0.4 ML SYRINGE SQ SCH (10:10)
[2022-04-05] MEDS: OSELTAMIVIR PHOSPHATE 75 MG CAP PO SCH ×2 (10:11→20:39)
[2022-04-05 12:00] VITALS: BP 111/57
[2022-04-05 16:00] VITALS: BP 121/54
[2022-04-05 19:25] VITALS: BP 107/55
[2022-04-05] MEDS: GUAIFENESIN-DM 200/20 MG 10 ML PO PRN (20:38)
[2022-04-05] MEDS: CEFTRIAXONE 1G VIAL IV SCH (20:39)
[2022-04-05] MEDS: AZITHROMYCIN 500MG+NS 250ML 250 ML IV SCH (20:39)
[2022-04-05 23:45] VITALS: BP 111/48
[2022-04-06 03:54] VITALS: BP 122/47
[2022-04-06 05:48] LABS: BASOPHILS % (AUTO) 1.9 % (0.0-5.0); EOSINOPHILS % (AUTO) 0.8 % (0.0-8.0); HEMATOCRIT 24.6 % (36-48); LYMPHOCYTES % (AUTO) 22.2 % (21.0-51.0); MEAN CORPUSCULAR HEMOGLOBIN 33.8 pg (27.0-33.0); MEAN CORPUSCULAR HGB CONC 32.9 g/dL (32.0-36.0); MEAN CORPUSCULAR VOLUME 102.5 fL (79-99); MONOCYTES % (AUTO) 5.6 % (3.0-13.0); NEUTROPHILS % (AUTO) 69.1 % (40.0-77.0); NUCLEATED RED BLOOD CELLS 0.8 % (0.0-0.19); PLATELET COUNT (AUTO) 70 K/uL (130-400); RED CELL DISTRIBUTION WIDTH 19.1 % (11.0-15.5); WHITE BLOOD COUNT (AUTO) 2.7 K/uL (4.8-10.8)
[2022-04-06 06:07] LABS: CREATININE 0.6 mg/dL (0.5-1.5)
[2022-04-06 06:14] LABS: POTASSIUM 2.8 mmol/L (3.5-5.1)
[2022-04-06] MEDS: INSULIN HUMULIN R 100 UNIT/ML 3ML SQ SCH ×4 (06:47→21:17)
[2022-04-06] MEDS: ALBUTEROL 0.083% 2.5 MG/3 ML INH IH SCH ×3 (06:52→18:57)
[2022-04-06 07:49] LABS: BAND NEUTROPHILS % (MANUAL) 12 % (0-2); LYMPHOCYTES % (MANUAL) 17 % (22-44); MAN.DIFF COMMENT-IMPRESSION MANUAL DIFFERENTIAL; SEGMENTED NEUTROPHILS % 71 % (40-70)
[2022-04-06 07:50] LABS: PLATELET MORPHOLOGY COMMENT DECREASED
[2022-04-06 08:00] VITALS: BP 124/40
[2022-04-06] MEDS ORDERED: POTASSIUM CHLORIDE 20MEQ/100ML 100 ML IV PRN (10:00)
[2022-04-06] MEDS ORDERED: POTASSIUM CHLORIDE 10% ELIXIR 20 MEQ/15 ML UDCUP PO PRN (10:00)
[2022-04-06] MEDS ORDERED: LIDOCAINE HCL-MPF 1% 2ML VIAL IV PRN (10:00)
[2022-04-06] MEDS ORDERED: KCL 20 MEQ ERTAB PO PRN (10:00)
[2022-04-06] MEDS ORDERED: POTASSIUM CHLORIDE 10% ELIXIR 20 MEQ/15 ML UDCUP PO ONE (10:00)
[2022-04-06] MEDS: OSELTAMIVIR PHOSPHATE 75 MG CAP PO SCH ×2 (10:26→21:17)
[2022-04-06] MEDS: GUAIFENESIN-DM 200/20 MG 10 ML PO PRN (10:28)
[2022-04-06 12:00] VITALS: BP 114/60
[2022-04-06 16:00] VITALS: BP 141/51
[2022-04-06] MEDS ORDERED: OSEL75 PO (18:21)
[2022-04-06 19:49] VITALS: BP 122/71
[2022-04-06] MEDS: CEFTRIAXONE 1G VIAL IV SCH (21:08)
[2022-04-06] MEDS: AZITHROMYCIN 500MG+NS 250ML 250 ML IV SCH (21:08)
== END 2022-04-06 21:45 | disposition home or self-care (01) | DRG 193 ==
LOC: EDH 17:41 → EDHIP 21:12 → 3BH 23:14
PROVIDERS: ADMIT Internal Medicine; ATTEND Internal Medicine
DX: J10.08 Influenza due to other identified influenza virus with other specified pneumonia (principal); R65.11 Systemic inflammatory response syndrome (SIRS) of non-infectious origin with acute organ dysfunction; J44.0 Chronic obstructive pulmonary disease with (acute) lower respiratory infection; J44.1 Chronic obstructive pulmonary disease with (acute) exacerbation; Z20.822 Contact with and (suspected) exposure to COVID-19; I11.0 Hypertensive heart disease with heart failure; I50.9 Heart failure, unspecified; I25.10 Atherosclerotic heart disease of native coronary artery without angina pectoris; D69.6 Thrombocytopenia, unspecified; K72.90 Hepatic failure, unspecified without coma; E78.00 Pure hypercholesterolemia, unspecified; Z95.1 Presence of aortocoronary bypass graft
CPT/HCPCS: 36415; 36600; 71045; 74230; 78452; 80048; 80053; 82140; 82270; 82435; 82550; 82803; 82947; 82948; 83605; 83880; 84132; 84295; 84484; 85018; 85025; 85610; 87040; 87635; 87804; 92610; 92611; 93005; 93017; 94640; 94664; 96374; 97039; A9500; C9803; G0378; J0456; J0696; J1650; J1815; J1940; J2785; J3480; J3490

== ENCOUNTER → 2022-04-20 | Outpatient (CLI) | payer MEDICARE ==
[~2022-04-20] MED LIST changes: +OSEL75 PO
[2022-04-20 12:52] LABS: CREATININE 0.7 mg/dL (0.5-1.5); POTASSIUM 4.5 mmol/L (3.5-5.1)
== END | disposition home or self-care (01) ==
LOC: LAB 09:34
PROVIDERS: ATTEND Physician Assistant
DX: I10 Essential (primary) hypertension (principal); E78.5 Hyperlipidemia, unspecified
CPT/HCPCS: 36415; 80048; 83880

== ENCOUNTER 2023-10-06 17:08 | Emergency (ER) | payer MEDICARE ==
[~2023-10-06] VITALS: Ht 154.9 cm; Wt 53.1 kg
[~2023-10-06 17:08] MED LIST changes: -ALEN70TA80 PO; +ASPI-1005 PO; -FERR-82 PO; -FOLI0.4T6 PO; +LOSA-417 PO; +MECL-226 PO; +METO25TA3 PO; +OMEP20TA20 PO; -OSEL75 PO; +SPIR25TA6 PO
[2023-10-06 17:54] VITALS: BP 103/62; PULSE 86; RESP 14; O2SAT 100
[2023-10-06 17:54] LABS: BASOPHILS # (AUTO) 0.04 K/uL (0.00-0.20); BASOPHILS % (AUTO) 0.9 % (0.0-5.0); EOSINOPHILS # (AUTO) 0.01 K/uL (0.00-0.70); EOSINOPHILS % (AUTO) 0.2 % (0.0-8.0); IMMATURE GRANULOCYTE ABSOLUTE 0.11 K/uL (0-1); LYMPHOCYTES # (AUTO) 0.5 K/uL (1.0-4.8); LYMPHOCYTES % (AUTO) 11.8 % (21.0-51.0); MEAN CORPUSCULAR HEMOGLOBIN 30.9 pg (27.0-33.0); MEAN CORPUSCULAR HGB CONC 34.6 g/dL (32.0-36.0); MEAN CORPUSCULAR VOLUME 89.3 fL (79-99); MONOCYTES # (AUTO) 0.3 K/uL (0.1-1.0); MONOCYTES % (AUTO) 7.2 % (3.0-13.0); NEUTROPHILS # (AUTO) 3.6 K/uL (1.8-7.7); NEUTROPHILS % (AUTO) 77.5 % (40.0-77.0); NUCLEATED RED BLOOD CELLS 3.3 % (0.0-0.19); PLATELET COUNT (AUTO) 39 K/uL (130-400); RED BLOOD CELL COUNT(AUTO) 2.33 MIL/uL (4.00-5.50); RED CELL DISTRIBUTION WIDTH 20.9 % (11.0-15.5); WHITE BLOOD COUNT (AUTO) 4.6 K/uL (4.8-10.8)
[2023-10-06 18:01] LABS: CREATININE 0.9 mg/dL (0.5-1.0); POTASSIUM 4.8 mmol/L (3.5-5.1)
[2023-10-06 18:02] LABS: INR 1.04 (0.85-1.15); PROTHROMBIN TIME 12.2 SEC (9.6-11.6)
[2023-10-06 18:04] LABS: PARTIAL THROMBOPLASTIN TIME 31.6 SEC (26.3-35.5)
[2023-10-06 18:06] LABS: ALBUMIN 3.5 g/dL (3.5-5.0); BILIRUBIN,TOTAL 1.8 mg/dL (0.2-1.0); TOTAL PROTEIN, SERUM 7.8 g/dL (6.0-8.3)
[2023-10-06 18:32] LABS: HEMATOCRIT 20.8 % (36-48)
[2023-10-06] MEDS: OXYMETAZOLINE HCL SPRAY 15 ML BOTTLE EN SCH (18:33)
[2023-10-06 19:01] LABS: BAND NEUTROPHILS % (MANUAL) 9 % (0-2); LYMPHOCYTES % (MANUAL) 16 % (22-44); REACTIVE LYMPHOCYTES 2 % (0-0); SEGMENTED NEUTROPHILS % 73 % (40-70); TOTAL CELLS COUNTED 100
[2023-10-06 19:07] LABS: MAN.DIFF COMMENT-IMPRESSION MANUAL DIFFERENTIAL
[2023-10-06 19:09] LABS: PLATELET MORPHOLOGY COMMENT LARGE PLTS PRESENT
== END 2023-10-06 18:59 | disposition home or self-care (01) ==
LOC: EDH 17:08
DX: R04.0 Epistaxis (principal); D50.0 Iron deficiency anemia secondary to blood loss (chronic); D69.6 Thrombocytopenia, unspecified; I11.0 Hypertensive heart disease with heart failure; I50.9 Heart failure, unspecified; E78.00 Pure hypercholesterolemia, unspecified; E11.9 Type 2 diabetes mellitus without complications; Z90.49 Acquired absence of other specified parts of digestive tract; Z79.4 Long term (current) use of insulin; Z79.899 Other long term (current) drug therapy
CPT/HCPCS: 36415; 80053; 85025; 85610; 85730; 86850; 86900; 86901

== ENCOUNTER 2023-11-09 17:53 | Observation (INO) | payer MEDICARE ==
[~2023-11-09] VITALS: Ht 144.8 cm; Wt 54.5 kg
[2023-11-09] MEDS: 0.9% NACL 500ML IV.SOLN 500 ML IV STA (18:23)
[2023-11-09 18:27] LABS: BASOPHILS # (AUTO) 0.04 K/uL (0.00-0.20); BASOPHILS % (AUTO) 2.2 % (0.0-5.0); IMMATURE GRANULOCYTE ABSOLUTE 0.06 K/uL (0-1); LYMPHOCYTES # (AUTO) 0.5 K/uL (1.0-4.8); LYMPHOCYTES % (AUTO) 25.1 % (21.0-51.0); MEAN CORPUSCULAR HEMOGLOBIN 30.1 pg (27.0-33.0); MEAN CORPUSCULAR HGB CONC 34.4 g/dL (32.0-36.0); MEAN CORPUSCULAR VOLUME 87.5 fL (79-99); MONOCYTES # (AUTO) 0.3 K/uL (0.1-1.0); MONOCYTES % (AUTO) 14.2 % (3.0-13.0); NEUTROPHILS % (AUTO) 55.2 % (40.0-77.0); NUCLEATED RED BLOOD CELLS 7.1 % (0.0-0.19); PLATELET COUNT (AUTO) 33 K/uL (130-400); RED BLOOD CELL COUNT(AUTO) 2.16 MIL/uL (4.00-5.50); RED CELL DISTRIBUTION WIDTH 16.6 % (11.0-15.5); WHITE BLOOD COUNT (AUTO) 1.8 K/uL (4.8-10.8)
[2023-11-09 18:33] LABS: CREATININE 1.1 mg/dL (0.5-1.0); POTASSIUM 5.3 mmol/L (3.5-5.1)
[2023-11-09 18:37] LABS: HEMATOCRIT 18.9 % (36-48); INR 1.06 (0.85-1.15); PROTHROMBIN TIME 12.4 SEC (9.6-11.6)
[2023-11-09 18:38] LABS: PARTIAL THROMBOPLASTIN TIME 25.9 SEC (26.3-35.5)
[2023-11-09] MEDS: OXYMETAZOLINE HCL SPRAY 15 ML BOTTLE EN STA (18:54)
[2023-11-09 19:31] LABS: BAND NEUTROPHILS % (MANUAL) 11 % (0-2); BASOPHILS % (MANUAL) 1 % (0-2); LYMPHOCYTES % (MANUAL) 30 % (22-44); MONOCYTES % (MANUAL) 4 % (2-9); SEGMENTED NEUTROPHILS % 54 % (40-70); TOTAL CELLS COUNTED 100
[2023-11-09 19:34] LABS: MAN.DIFF COMMENT-IMPRESSION MANUAL DIFFERENTIAL
[2023-11-09 19:35] LABS: PLATELET MORPHOLOGY COMMENT MARKED DECREASE; WBC MORPHOLOGY CONSISTENT W/DIFF
[2023-11-09] MEDS: 0.9%NACL 1000ML 1,000 ML IV SCH (22:27)
[2023-11-09] MEDS ORDERED: FURO40TA5 PO (22:34)
[2023-11-09 22:35] VITALS: O2SAT 98
[2023-11-09] MEDS ORDERED: [UNRECOGNIZED DRUG - CODE] IJ (22:39)
[2023-11-09] MEDS ORDERED: SITA1TAB6 PO (22:39)
[2023-11-09 22:47] VITALS: BP 129/38; PULSE 97; RESP 19
[2023-11-10] VITALS: BP 141/60
[2023-11-10 04:00] VITALS: BP 119/58; PULSE 86; RESP 18
[2023-11-10 04:09] LABS: BASOPHILS # (AUTO) 0.07 K/uL (0.00-0.20); BASOPHILS % (AUTO) 3.9 % (0.0-5.0); HEMATOCRIT 28.3 % (36-48); IMMATURE GRANULOCYTE ABSOLUTE 0.03 K/uL (0-1); LYMPHOCYTES # (AUTO) 0.4 K/uL (1.0-4.8); MEAN CORPUSCULAR HGB CONC 33.9 g/dL (32.0-36.0); MEAN CORPUSCULAR VOLUME 85.5 fL (79-99); MONOCYTES # (AUTO) 0.2 K/uL (0.1-1.0); MONOCYTES % (AUTO) 11.6 % (3.0-13.0); NEUTROPHILS # (AUTO) 1.1 K/uL (1.8-7.7); NEUTROPHILS % (AUTO) 61.8 % (40.0-77.0); NUCLEATED RED BLOOD CELLS 6.6 % (0.0-0.19); PLATELET COUNT (AUTO) 28 K/uL (130-400); RED BLOOD CELL COUNT(AUTO) 3.31 MIL/uL (4.00-5.50); RED CELL DISTRIBUTION WIDTH 16.4 % (11.0-15.5); WHITE BLOOD COUNT (AUTO) 1.8 K/uL (4.8-10.8)
[2023-11-10 04:38] LABS: ALBUMIN 3.2 g/dL (3.5-5.0); BILIRUBIN,TOTAL 1.7 mg/dL (0.2-1.0); CREATININE 0.7 mg/dL (0.5-1.0); POTASSIUM 4.3 mmol/L (3.5-5.1); TOTAL PROTEIN, SERUM 6.9 g/dL (6.0-8.3)
[2023-11-10 08:00] VITALS: BP 112/47; PULSE 87; RESP 16
== END 2023-11-10 12:00 | disposition home or self-care (01) ==
LOC: EDH 17:53 → EDHIP 19:05 → 3BH 20:45
PROVIDERS: ADMIT Internal Medicine; ATTEND Internal Medicine
DX: D64.9 Anemia, unspecified (principal); R04.0 Epistaxis; D69.6 Thrombocytopenia, unspecified; I11.0 Hypertensive heart disease with heart failure; I50.9 Heart failure, unspecified; N17.9 Acute kidney failure, unspecified; E87.1 Hypo-osmolality and hyponatremia; E87.5 Hyperkalemia; I25.10 Atherosclerotic heart disease of native coronary artery without angina pectoris; E11.9 Type 2 diabetes mellitus without complications; E78.00 Pure hypercholesterolemia, unspecified; Z95.1 Presence of aortocoronary bypass graft; Z96.642 Presence of left artificial hip joint; Z79.4 Long term (current) use of insulin; Z90.49 Acquired absence of other specified parts of digestive tract; Z96.651 Presence of right artificial knee joint
CPT/HCPCS: 36415; 36430; 80048; 80053; 85025; 85610; 85730; 86850; 86900; 86901; 86923; 93005; 99291; G0378; J7030; P9016